=== PATIENT | female | born 1970 | race Hispanic/Latino ===

== ENCOUNTER 2018-05-28 11:15 | Emergency (ER) | payer MEDICAID, OTHER ==
[2018-05-28 11:24] VITALS: RESP 18; TEMP 98.3
[2018-05-28] MEDS ORDERED: Oxycodone/Acetaminophen 5/325 mg Tab PO STA (11:47)
--- NOTE | 2018-05-28 12:03 | ED PDOC ---
Arrival/HPI - General Historian: Patient - History of Present Illness Narrative History of Present Illness (Text): 05/28/18 11:59 48yo morbidly obese female with no pmhx bib EMS for left inner thigh pain x 3days. Patient states she pulled her hamstring while exercising 3days ago. States she was seen at a hospital in [place] and was discharged with Naprosyn after a negative xray. The boyfirend by the bedside states patient is currently staying with him and having severe pain. States the Naprosyn is not helping and she has not been able to sleep and ambulate secondary to the pain. She denies calf pain, swelling ,redness, chest pain, SOB, diaphoresis, any other complaint. 1 <Charlotte Gutierrez A - Last Filed: 05/28/18 14:43> <Luis Armando Wasserman - Last Filed: 05/28/18 15:31> - General Chief Complaint: Lower Extremity Problem/Injury Time Seen by Provider: 05/28/18 11:17 Past Medical History - Provider Review Nursing Documentation Reviewed: Yes - Cardiac Hx Hypertension: Yes - Psychiatric Hx Substance Use: No <Charlotte Gutierrez A - Last Filed: 05/28/18 14:43> Family/Social History - Physician Review Nursing Documentation Reviewed: Yes Family/Social History: Unknown Family HX Smoking Status: Never Smoked Hx Alcohol Use: No Hx Substance Use: No <Charlotte Gutierrez A - Last Filed: 05/28/18 14:43> Allergies/Home Meds <Charlotte Gutierrez A - Last Filed: 05/28/18 14:43> <Luis Armando Wasserman - Last Filed: 05/28/18 15:31> Allergies/Adverse Reactions: Allergies No Known Allergies Allergy (Verified 05/28/18 11:28) Home Medications: Home Meds Medication Instructions Recorded Confirmed Htn Med 05/28/18 Review of Systems - Physician Review All systems were reviewed & negative as marked: Yes - Review of Systems Constitutional: Normal Eyes: Normal ENT: Normal Respiratory: Normal Cardiovascular: Normal Gastrointestinal: Normal Genitourinary Female: Normal Musculoskeletal: Arthralgias (Left thigh pain) Skin: Normal Neurological: Normal Endocrine: Normal Hemo/Lymphatic: Normal Psychiatric: Normal <Charlotte Gutierrez A - Last Filed: 05/28/18 14:43> Physical Exam Vital Signs Reviewed: Yes Vital Signs Temp Pulse Resp BP Pulse Ox 05/28/18 11:23 98.3 F 86 18 160/110 H 100 Temperature: Afebrile Blood Pressure: Normal Pulse: Regular Respiratory Rate: Normal Appearance: Positive for: Well-Appearing, Non-Toxic, Comfortable Pain Distress: None Mental Status: Positive for: Alert and Oriented X 3 - Systems Exam Head: Present: Atraumatic, Normocephalic Pupils: Present: PERRL Extroacular Muscles: Present: EOMI Conjunctiva: Present: Normal Mouth: Present: Moist Mucous Membranes Neck: Present: Normal Range of Motion Respiratory/Chest: Present: Clear to Auscultation, Good Air Exchange. No: Respiratory Distress, Accessory Muscle Use Cardiovascular: Present: Regular Rate and Rhythm, Normal S1, S2. No: Murmurs Abdomen: No: Tenderness, Distention, Peritoneal Signs Back: Present: Normal Inspection Upper Extremity: Present: Normal Inspection. No: Cyanosis, Edema Lower Extremity: Present: Normal Inspection, NORMAL PULSES, Normal ROM, Capillary Refill < 2 s. No: Edema, CALF TENDERNESS, Gayathri's Sign, Tenderness, Swelling, Erythema, Deformity, Temperature Abnormalties, Neurovascularly Intact Neurological: Present: GCS=15, CN II-XII Intact, Speech Normal Skin: Present: Warm, Dry, Normal Color. No: Rashes Psychiatric: Present: Alert, Oriented x 3, Normal Insight, Normal Concentration <Diru,Happiness A - Last Filed: 05/28/18 14:43> Vital Signs Temp Pulse Resp BP Pulse Ox 05/28/18 14:48 71 18 152/86 H 100 05/28/18 12:55 79 18 158/96 H 100 05/28/18 11:23 98.3 F 86 18 160/110 H 100 <Tolerico,Luis Armando - Last Filed: 05/28/18 15:31> Medical Decision Making ED Course and Treatment: 05/28/18 14:45 48yo female in ED for left thigh pain s/p exercise 3days ago. Doppler US Left femur Percocet Reassess PEr US tech preliminary report was negative for DVT Left femur - IMPRESSION: Unremarkable radiographs of the left femur. On revaluation pt reports improvement of her pain. She was ambulatory. DC home with a cane. all result was DW the pt. She was advised to move, massage area with warm com press/shower, follow up with her PMD/clinic TRT ED for any new or worsening symptoms - RAD Interpretation Radiology Orders: 05/28/18 11:42 DUPLEX LOWER EXTRM VEIN LEFT [US] Stat 05/28/18 11:43 FEMUR MIN 2 VIEWS LT [RAD] Stat - Medication Orders Current Medication Orders: Oxycodone/Acetaminophen (Percocet 5/325 Mg Tab) 1 tab PO STAT STA Stop: 05/28/18 11:48 <Diru,Happiness A - Last Filed: 05/28/18 14:43> - RAD Interpretation Radiology Orders: 05/28/18 11:42 DUPLEX LOWER EXTRM VEIN LEFT [US] Stat 05/28/18 11:43 FEMUR MIN 2 VIEWS LT [RAD] Stat - Medication Orders Current Medication Orders: Discontinued Medications Oxycodone/Acetaminophen (Percocet 5/325 Mg Tab) 1 tab PO STAT STA Stop: 05/28/18 11:48 Last Admin: 05/28/18 13:00 Dose: 1 tab [facility] Pain Assessment Document 05/28/18 13:00 OCS (Rec: 05/28/18 13:00 OCS [id number]) Pain Reassessment Is this a pain reassessment? No Sleep Is patient sleeping during reassessment? No Presence of Pain Presence of Pain Yes Pain Scale Used Protocol: PSCALES Pain Scale Used Numeric Location Left, Right or Bilateral Right Upper or Lower Upper Pain Location Body Site Leg Description Description Constant Intensity of Pain at present 10 Pain Behavior Irritability Facial Grimacing Aggravating Factors ADL's <Luis Armando Wasserman - Last Filed: 05/28/18 15:31> - PA / MARKETING STRATEGY ANALYST / Resident Statement /DO has reviewed & agrees with the documentation as recorded. <Luis Armando Wasserman - Last Filed: 05/28/18 15:31> Disposition/Present on Arrival - Present on Arrival Any Indicators Present on Arrival: No History of DVT/PE: No History of Uncontrolled Diabetes: No Urinary Catheter: No History of Decub. Ulcer: No History Surgical Site Infection Following: None - Disposition Have Diagnosis and Disposition been Completed?: Yes Disposition Time: 14:30 Patient Plan: Discharge <Diru,Happiness A - Last Filed: 05/28/18 14:43> <Luis Armando Wasserman - Last Filed: 05/28/18 15:31> - Disposition Diagnosis: Muscle strain, lower leg Disposition: HOME/ ROUTINE Patient Problems: Current Active Problems Problem Status Onset Muscle strain, lower leg Acute Condition: STABLE Discharge Instructions (ExitCare): Lower Extremity Muscle Strain Additional Instructions: Follow up with your Doctor Return to ED for any new symptoms Prescriptions: oxyCODONE/Acetaminophen [Percocet 5/325 mg Tab] 1 tab PO Q6 #6 tab Referrals: Stacy Lee MD [Medical Doctor] - Follow up with primary James Schultz DO [Staff Provider] - Follow up with primary Forms: [employer] (Thai)
--- NOTE | 2018-05-28 14:11 | RAD ---
Date of service: 05/28/2018 PROCEDURE: Left Femur Radiographs. HISTORY: leg pain COMPARISON: None. TECHNIQUE: AP and Lateral Radiographs of the left femur. FINDINGS: FEMUR: Normal. No fracture. SOFT TISSUES: Normal. OTHER FINDINGS: None. IMPRESSION: Unremarkable radiographs of the left femur.
--- NOTE | 2018-05-28 15:56 | US ---
PROCEDURE: Left lower extremity venous US HISTORY: Leg pain and swelling. Evaluate for DVT. PHYSICIAN(S): Abhishek Plata MD. TECHNIQUE: Duplex sonography and color-flow Doppler with graded compression were used to evaluate the deep venous system of the left lower extremity. FINDINGS: The visualized deep venous system of the left lower extremity is sonographically normal and compressible. Normal wave forms and augmentation are seen. There is no sonographic evidence for deep venous thrombosis in the visualized segments of the left lower extremity. IMPRESSION: 1. No sonographic evidence for deep venous thrombosis in the visualized segments of the left lower extremity.
[2018-05-28 17:02] VITALS: BP 150/82; PULSE 74; O2SAT 98
== END 2018-05-28 17:02 | disposition home or self-care (01) ==
LOC: ED 11:15
DX: S86.912A Strain of unspecified muscle(s) and tendon(s) at lower leg level, left leg, initial encounter (principal); X50.9XXA Other and unspecified overexertion or strenuous movements or postures, initial encounter; I10 Essential (primary) hypertension; E66.01 Morbid (severe) obesity due to excess calories

== ENCOUNTER 2018-05-31 12:46 | Inpatient (IN) | payer MEDICAID, OTHER ==
[2018-05-31 13:05] VITALS: BMI 34.3
[2018-05-31] MEDS ORDERED: Morphine 4 mg/ml ISec IVP STA (13:22)
--- NOTE | 2018-05-31 13:23 | ED PDOC ---
Arrival/HPI - General Historian: Patient - History of Present Illness Narrative History of Present Illness (Text): 05/31/18 13:17 48 y/o female, pmh including htn, nkda, BMI 34, biba c/o lower back and lower leg pain for weeks after pulled the muscle. Pt. stated that she has chronic lower back pain radiating to the LE for weeks, tried nsaids with limited relief and stated that she has been falling due to the leg weakness and lower back pain, woke up yesterday morning around 1pm and noted to have left sided drooping with unable to smile/closing eyes but no slurred speech, no numbness or tingling, no extremity weakness, no loss of sensation, no other medical or psychological complaints. Past Medical History - Provider Review Nursing Documentation Reviewed: Yes - Cardiac Hx Hypertension: Yes - Psychiatric Hx Substance Use: No Family/Social History - Physician Review Nursing Documentation Reviewed: Yes Family/Social History: Unknown Family HX Smoking Status: Never Smoked Hx Alcohol Use: No Hx Substance Use: No Allergies/Home Meds Allergies/Adverse Reactions: Allergies No Known Allergies Allergy (Verified 05/28/18 11:28) Home Medications: Home Meds Medication Instructions Recorded Confirmed Htn Med 05/28/18 Review of Systems - Review of Systems Constitutional: absent: Fatigue, Fevers Eyes: absent: Vision Changes ENT: absent: Hearing Changes Respiratory: absent: SOB, Cough Cardiovascular: absent: Chest Pain Gastrointestinal: absent: Abdominal Pain, Diarrhea, Nausea, Vomiting Musculoskeletal: Back Pain. absent: Arthralgias Skin: absent: Rash, Pruritis, Skin Lesions Neurological: Focal Weakness. absent: Headache, Dizziness, Gait Changes, Speech Changes, Facial Droop, Disequilibrium (lt. sided facial), Seizure Psychiatric: absent: Anxiety, Depression, Suicidal Ideation Physical Exam Vital Signs Reviewed: Yes Temperature: Afebrile Blood Pressure: Hypertensive Pulse: Regular Respiratory Rate: Normal Appearance: Positive for: Well-Appearing, Non-Toxic Pain Distress: Severe Mental Status: Positive for: Alert and Oriented X 3 - Systems Exam Head: Present: Atraumatic, Normocephalic, Other (no facial tenderness or swelling. ). No: Tenderness, Contusion, Swelling, Ecchymosis, Abrasion, Laceration Pupils: Present: PERRL Extroacular Muscles: Present: EOMI Conjunctiva: Present: Normal, Other (Lt. eye examined with fluosein strip and show no up take. Note patient has no left eye discomfort. ) Ears: Present: NORMAL TM, Normal Canal. No: Erythema Mouth: Present: Moist Mucous Membranes Pharnyx: No: ERYTHEMA, EXUDATE, TONSILS ENLARGED Nose (External): Present: Atraumatic. No: Abrasion, Contusion, Laceration Nose (Internal): Present: Normal Inspection, No Active Bleeding. No: Rhinorrhea, Septal Hematoma, Epistaxis Neck: Present: Normal Range of Motion, Trachea Midline. No: Meningeal Signs, MIDLINE TENDERNESS, Paraspinal Tenderness, Lymphadenopathy Respiratory/Chest: Present: Clear to Auscultation, Good Air Exchange. No: Respiratory Distress, Accessory Muscle Use Cardiovascular: Present: Regular Rate and Rhythm, Normal S1, S2. No: Murmurs Abdomen: No: Tenderness, Distention, Peritoneal Signs, Rebound, Guarding Back: Present: Normal Inspection, Paraspinal Tenderness (bilateral paraspinal lumbar region. ). No: CVA Tenderness, Midline Tenderness, Pain with Leg Raise, Decubitus Ulcer Upper Extremity: Present: Normal Inspection. No: Cyanosis, Edema Lower Extremity: Present: Normal Inspection. No: Edema Neurological: Present: GCS=15, CN II-XII Intact, Speech Normal, Motor Func Grossly Intact, Gait Normal, Memory Normal, Other (Lt. 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 ) Skin: Present: Warm, Dry, Rashes (lower belly region noted to have lichenification rash appear to be tinea corporis), Normal Color Psychiatric: Present: Alert, Oriented x 3, Normal Insight, Normal Concentration Medical Decision Making ED Course and Treatment: 05/31/18 13:32 -Labs -radiology study -IV morphine/valtrex/prednisone/topical clotrimaozole -Eye patch and artificial tear -observe and reassess 05/31/18 16:41 -Urine hcg is negative. -EKG: NSR @ 98 BPM, no ST elevation or depression, no T wave inversion. -CT head: No acute intracranial abnormalities. No significant findings to account for the clinical presentation. -CT Lumbar spine: Degenerative changes mid and lower lumbar spine/lumbosacral junction. These are most notable at L5-S1 including grade 1 retrolisthesis. Proliferative degenerative changes extend into the exiting neural foramen on the left. No acute findings. Additional benign and/or incidental findings described above. -Chest xray No active disease. -Bilateral LE venuous doppler: as per preliminary report, no acute DVT -Labs show no acute findings except K+ 3.5 (potassium chloride 20meq po ordered) -Mg within normal limit -ESR is 23 -CRP ordered and won't be resulted -Pt. still having pain after pain medication, unable to walk without falling, high risk for fall. -Lymes IGG and IGM, HSV PCR ordered and wont be resulted today. -I can not explain the cause of her lower back pain that causing her fall, she would need additional imaging which may need MRI of lumbar spine? and possible physical therapy, not safe to be discharged home with high risk of fall and lives alone. 05/31/18 17:14 -aspirin ordered for her. -I discussed with Dr. Begum about labs/radiology results/Dr. Garcia consult, agreed to admit to [facility] floor and follow up. - Lab Interpretations I have reviewed the lab results: Yes - RAD Interpretation Radiology Orders: -CT head: Date of service: 05/31/2018 PROCEDURE: CT HEAD WITHOUT CONTRAST. HISTORY: falls frequently, lt.sided bells palsy COMPARISON: None available. TECHNIQUE: Axial computed tomography images were obtained through the head/brain without intravenous contrast. Supplemental Coronal and Sagittal projections created and reviewed. Radiation dose: Total exam DLP = 838.82 mGy-cm. This CT exam was performed using one or more of the following dose reduction techniques: Automated exposure control, adjustment of the mA and/or kV according to patient size, and/or use of iterative reconstruction technique. FINDINGS: HEMORRHAGE: No intracranial hemorrhage. BRAIN: No mass effect or edema. No atrophy or chronic microvascular ischemic changes. VENTRICLES: Unremarkable. No hydrocephalus. CALVARIUM: Unremarkable. PARANASAL SINUSES: Unremarkable as visualized. No significant inflammatory changes. MASTOID AIR CELLS: Unremarkable as visualized. No inflammatory changes. OTHER FINDINGS: None. IMPRESSION: No acute intracranial abnormalities. No significant findings to account for the clinical presentation. -CT Lumbar spine: Date of service: 05/31/2018 PROCEDURE: CT Lumbar Spine without contrast HISTORY: chronic lower back pain radiating to LE COMPARISON: None available. TECHNIQUE: Axial computed tomography images were obtained of the lumbar spine without the use of intravenous contrast. Coronal and sagittal reformatted images were created and reviewed. Radiation dose: Total exam DLP = 1583.32 mGy-cm. This CT exam was performed using one or more of the following dose reduction techniques: Automated exposure control, adjustment of the mA and/or kV according to patient size, and/or use of iterative reconstruction technique. FINDINGS: VERTEBRAE: Unremarkable. No fracture. Normal alignment. DISCS/SPINAL CANAL/NEURAL FORAMINA: L1-2: Unremarkable. L2-3: Unremarkable. L3-4: Degenerative changes primarily disc space narrowing, vacuum disc phenomenon, bulging annulus. L4-5: Unremarkable. L5-S1: Grade 1 retrolisthesis. Vacuum disc phenomenon. Proliferative degenerative/hypertrophic changes extend into the exiting neural foramen left side only. PARASPINAL SOFT TISSUES: Unremarkable. OTHER FINDINGS: Sacroiliac degenerative changes are mild and symmetrical. Spina bifida occulta lumbosacral junction common normal variant IMPRESSION: Degenerative changes mid and lower lumbar spine/lumbosacral junction. These are most notable at L5-S1 including grade 1 retrolisthesis. Proliferative degenerative changes extend into the exiting neural foramen on the left. No acute findings. Additional benign and/or incidental findings described above. -Chest xray Date of service: 05/31/2018 PROCEDURE: CHEST RADIOGRAPH, 1 VIEW HISTORY: medical clearance COMPARISON: None available. FINDINGS: LUNGS: Clear. PLEURA: No pneumothorax or pleural fluid seen. CARDIOVASCULAR: No aortic atherosclerotic calcification present. Normal. OSSEOUS STRUCTURES: No significant abnormalities. VISUALIZED UPPER ABDOMEN: Normal. OTHER FINDINGS: None. IMPRESSION: No active disease. -Bilateral LE venuous doppler: as per preliminary report, no acute DVT Retail Brand Ambassador: Radiologist - EKG Interpretation EKG Interpretation (Text): 05/31/18 15:53 EKG: NSR @ 98 BPM, no ST elevation or depression, no T wave inversion. Interpreted by ED Physician: Yes Type: 12 lead EKG - PA / PAPER COLORER / Resident Statement MD/DO has reviewed & agrees with the documentation as recorded. Disposition/Present on Arrival - Present on Arrival Any Indicators Present on Arrival: No History of DVT/PE: No History of Uncontrolled Diabetes: No Urinary Catheter: No History of Decub. Ulcer: No History Surgical Site Infection Following: None - Disposition Have Diagnosis and Disposition been Completed?: Yes Diagnosis: Chaudhary's palsy, Tinea corporis, Frequent falls, Hypokalemia, Back pain Disposition: HOSPITALIZED Disposition Time: 17:16 Patient Plan: Admission, Observation, Telemetry Patient Problems: Current Active Problems Problem Status Onset Back pain Acute Chaudhary's palsy Acute Frequent falls Acute Hypokalemia Acute Tinea corporis Acute Condition: STABLE
[2018-05-31] MEDS ORDERED: Aritificial Tears (15ml) OD STA ×2 (13:27→13:29)
[2018-05-31] MEDS ORDERED: Clotrimazole 1% Cream(30 gm) TOP STA ×2 (13:35→13:36)
[2018-05-31] MEDS ORDERED: Sodium Chloride 0.9% 1,000 ML IV SCH (13:45)
--- NOTE | 2018-05-31 14:36 | CT ---
Date of service: 05/31/2018 PROCEDURE: CT HEAD WITHOUT CONTRAST. HISTORY: falls frequently, lt.sided bells palsy COMPARISON: None available. TECHNIQUE: Axial computed tomography images were obtained through the head/brain without intravenous contrast. Supplemental Coronal and Sagittal projections created and reviewed. Radiation dose: Total exam DLP = 838.82 mGy-cm. This CT exam was performed using one or more of the following dose reduction techniques: Automated exposure control, adjustment of the mA and/or kV according to patient size, and/or use of iterative reconstruction technique. FINDINGS: HEMORRHAGE: No intracranial hemorrhage. BRAIN: No mass effect or edema. No atrophy or chronic microvascular ischemic changes. VENTRICLES: Unremarkable. No hydrocephalus. CALVARIUM: Unremarkable. PARANASAL SINUSES: Unremarkable as visualized. No significant inflammatory changes. MASTOID AIR CELLS: Unremarkable as visualized. No inflammatory changes. OTHER FINDINGS: None. IMPRESSION: No acute intracranial abnormalities. No significant findings to account for the clinical presentation.
--- NOTE | 2018-05-31 14:42 | CT ---
Date of service: 05/31/2018 PROCEDURE: CT Lumbar Spine without contrast HISTORY: chronic lower back pain radiating to LE COMPARISON: None available. TECHNIQUE: Axial computed tomography images were obtained of the lumbar spine without the use of intravenous contrast. Coronal and sagittal reformatted images were created and reviewed. Radiation dose: Total exam DLP = 1583.32 mGy-cm. This CT exam was performed using one or more of the following dose reduction techniques: Automated exposure control, adjustment of the mA and/or kV according to patient size, and/or use of iterative reconstruction technique. FINDINGS: VERTEBRAE: Unremarkable. No fracture. Normal alignment. DISCS/SPINAL CANAL/NEURAL FORAMINA: L1-2: Unremarkable. L2-3: Unremarkable. L3-4: Degenerative changes primarily disc space narrowing, vacuum disc phenomenon, bulging annulus. L4-5: Unremarkable. L5-S1: Grade 1 retrolisthesis. Vacuum disc phenomenon. Proliferative degenerative/hypertrophic changes extend into the exiting neural foramen left side only. PARASPINAL SOFT TISSUES: Unremarkable. OTHER FINDINGS: Sacroiliac degenerative changes are mild and symmetrical. Spina bifida occulta lumbosacral junction common normal variant IMPRESSION: Degenerative changes mid and lower lumbar spine/lumbosacral junction. These are most notable at L5-S1 including grade 1 retrolisthesis. Proliferative degenerative changes extend into the exiting neural foramen on the left. No acute findings. Additional benign and/or incidental findings described above.
--- NOTE | 2018-05-31 14:42 | RAD ---
Date of service: 05/31/2018 PROCEDURE: CHEST RADIOGRAPH, 1 VIEW HISTORY: medical clearance COMPARISON: None available. FINDINGS: LUNGS: Clear. PLEURA: No pneumothorax or pleural fluid seen. CARDIOVASCULAR: No aortic atherosclerotic calcification present. Normal. OSSEOUS STRUCTURES: No significant abnormalities. VISUALIZED UPPER ABDOMEN: Normal. OTHER FINDINGS: None. IMPRESSION: No active disease.
[2018-05-31 16:03] LABS: BASO # 0.03 K/mm3 (0.0-2.0); BASO % 0.3 % (0.0-3.0); EOS # 0.1 (0.0-0.7); GRAN # 7.14 (1.4-6.5); GRAN % 76.2 % (50.0-68.0); HEMOGLOBIN 13.2 g/dL (12.0-16.0); LYMPH # 1.7 (1.2-3.4); LYMPH % 18.2 % (22.0-35.0); MEAN CELL VOLUME 85.2 fl (80.0-105.0); MEAN CORPUSCULAR HEMOGLOBIN 26.5 pg (25.0-35.0); MEAN CORPUSCULAR HGB CONC 31.1 g/dl (31.0-37.0); MONO # 0.4 (0.1-0.6); MONO % 4.3 % (1.0-6.0); RBC 4.99 10^6/uL (3.5-6.1); RED CELL DISTRIBUTION WIDTH 15.1 % (11.5-14.5); WHITE BLOOD COUNT 9.4 10^3/uL (4.5-11.0)
[2018-05-31 16:06] LABS: INR 1.06; PARTIAL THROMBOPLASTIN TIME 27.9 Seconds (25.1-36.5); PROTHROMBIN TIME 12.1 SECONDS (9.4-12.5)
[2018-05-31 16:11] LABS: ALB/GLOB RATIO 1.2 (1.1-1.8); ALBUMIN 4.2 g/dL (3.0-4.8); ALT/SGPT 41 U/L (7-56); AST/SGOT 49 U/L (14-36); BLOOD UREA NITROGEN 16 mg/dL (7-21); CALCIUM 9.2 mg/dL (8.4-10.5); GFR NON-AFRICAN AMERICAN > 60; LIPASE 119 U/L (23-300)
[2018-05-31] MEDS ORDERED: Potassium Chloride 20 mEq ER Tab PO STA (16:38)
[2018-05-31] MEDS ORDERED: Clotrimazole 1% Top Soln(10 ml) TOP SCH (18:30)
--- NOTE | 2018-05-31 18:38 | CP.PCM.HP ---
<Diogenes Bernal - Last Filed: 05/31/18 20:16> History of Present Illness - History of Present Illness History of Present Illness: Resident History & Physical for Hospitalist Service Patient is a 48 year old female with past medical history of HTN and obesity presenting with chief complaint of increasing weakness which began about one week prior. She states she has been experiencing bilateral thigh pain and back pain, for which she took naproxen prescribed from an urgent care with no relief. The thigh pain is localized and unrelated to her back pain. Pain is inter mittent, sharp in nature, and worsened by lying supine. She presented to [facility] three days ago with the same symptoms. At that time lower extremity dopplers were done along with left femur x-ray which were unremarkable. Yesterday she began to notice left sided facial droop, slurred speech, and tingling in her upper and lower extremities bilaterally. She states that prior to the onset of symptoms she was able to carry out activities of daily living independently. Her weakness has worsened to the severity that she has to use a walker. She denies any recent illnesses, trauma, recent travel including camping, tick bites, and sick contacts. She also denies seizures, loss of consciousness, fevers, chills, chest pain, shortness of breath, abdominal pain, diarrhea, dysuria, bowel or bladder incontinence. PMH: HTN, obesity PSH: none SHx: denies alcohol, tobacco, illicit drug use FHx: Father (CKD, M.I.) Allergies: NKDA PMD: Dr. Mondragon Present on Admission - Present on Admission Any Indicators Present on Admission: No Review of Systems - Review of Systems All systems: reviewed and no additional remarkable complaints except (as stated in HPI) Past Patient History - Past Social History Smoking Status: Never Smoked - CARDIAC Hx Hypertension: Yes - PSYCHIATRIC Hx Substance Use: No - SURGICAL HISTORY Hx Surgeries: No Meds Allergies/Adverse Reactions: Allergies Allergy/AdvReac Type Severity Reaction Status Date / Time No Known Allergies Allergy Verified 05/31/18 20:50 Physical Exam - Constitutional Appears: Non-toxic, No Acute Distress - Head Exam Head Exam: ATRAUMATIC, NORMOCEPHALIC Additional comments: left facial droop - Eye Exam Eye Exam: EOMI, Normal appearance, PERRL - ENT Exam ENT Exam: Mucous Membranes Moist, Normal External Ear Exam - Neck Exam Neck exam: Negative for: Lymphadenopathy, Tenderness - Respiratory Exam Respiratory Exam: Clear to Auscultation Bilateral, NORMAL BREATHING PATTERN. absent: Wheezes, Respiratory Distress - Cardiovascular Exam Cardiovascular Exam: REGULAR RHYTHM, +S1, +S2. absent: Tachycardia, Systolic Murmur - GI/Abdominal Exam GI & Abdominal Exam: Soft. absent: Firm, Guarding, Rebound, Rigid, Tenderness Additional comments: erythematous rash noted in intertriginous folds bruises noted in lower quadrants - Extremities Exam Extremities exam: Positive for: full ROM, normal capillary refill, pedal pulses present. Negative for: calf tenderness, pedal edema, tenderness - Neurological Exam Neurological exam: Alert, CN II-XII Intact, Oriented x3, Reflexes Normal Additional comments: mild dysmetria - Expanded Neurological Exam Expanded Patient oriented to: person, place, time Speech: Slurred Speech Cranial nerves: EOM's Intact: Normal, Facial Sensation: Normal, Tongue Deviation: Normal Cerebellar Function: Finger to Nose: Normal Upper motor neuron: Babinski Sign: Normal Neuro motor strength exam: Left Upper Extremity: 5, Right Upper Extremity: 5, Left Lower Extremity: 5, Right Lower Extremity: 5 DTR: Bicep Left: 2+, Bicep Right: 2+, Brachioradialis Left: 2+, Brachioradialis Right: 2+, Patellar Left: 2+, Patellar Right: 2+ Coma Scale Eye Opening: SPONTANEOUS Coma Scale Motor Response: OBEYS COMMANDS Coma Scale Verbal: Oriented Coma Scale Total: 15 - Psychiatric Exam Psychiatric exam: Normal Affect, Normal Mood - Skin Skin Exam: Dry, Intact, Normal Color Results - Vital Signs Recent Vital Signs: Last Vital Signs Temp Pulse 97 H 05/31/18 12:47 Resp 17 05/31/18 12:47 BP 175/103 H 05/31/18 12:47 Pulse Ox 99 05/31/18 12:47 - Labs Result Diagrams: 05/31/18 13:35 05/31/18 13:35 Labs: Laboratory Results - last 24 hr 05/31/18 05/31/18 05/31/18 13:35 13:35 13:35 WBC 9.4 RBC 4.99 Hgb 13.2 Hct 42.5 MCV 85.2 MCH 26.5 MCHC 31.1 RDW 15.1 H Plt Count 321 MPV 11.0 Gran % 76.2 H Lymph % (Auto) 18.2 L [place] % (Auto) 4.3 Eos % (Auto) 1.0 L Baso % (Auto) 0.3 Gran # 7.14 H Lymph # (Auto) 1.7 Lander # (Auto) 0.4 Eos # (Auto) 0.1 Baso # (Auto) 0.03 ESR 23 H PT INR APTT Sodium 142 Potassium 3.5 L Chloride 105 Carbon Dioxide 29 Anion Gap 11 BUN 16 Creatinine 0.5 L Est GFR ( Amer) > 60 Est GFR (Non-Af Amer) > 60 Random Glucose 106 Calcium 9.2 Magnesium 2.3 H Total Bilirubin 0.5 AST 49 H ALT 41 Alkaline Phosphatase 68 Total Creatine Kinase 167 Total Protein 7.7 Albumin 4.2 Globulin 3.5 Albumin/Globulin Ratio 1.2 Lipase 119 Beta HCG, Quant < 2.39 05/31/18 13:35 WBC RBC Hgb Hct MCV MCH MCHC RDW Plt Count MPV Gran % Lymph % (Auto) Lander % (Auto) Eos % (Auto) Baso % (Auto) Gran # Lymph # (Auto) Lander # (Auto) Eos # (Auto) Baso # (Auto) ESR PT 12.1 INR 1.06 APTT 27.9 Sodium Potassium Chloride Carbon Dioxide Anion Gap BUN Creatinine Est GFR ( Amer) Est GFR (Non-Af Amer) Random Glucose Calcium Magnesium Total Bilirubin AST ALT Alkaline Phosphatase Total Creatine Kinase Total Protein Albumin Globulin Albumin/Globulin Ratio Lipase Beta HCG, Quant Assessment & Plan - Assessment and Plan (Free Text) Assessment: Patient is a 48 year old female with past medical history of HTN and obesity admitted for workup and management of weakness, BLE pain, slurred speech, facial droop. Plan: Weakness - Chaudhary's palsy vs. TIA vs. stroke - In ED given 325 mg aspirin, 6 mg morphine, 60 mg prednisone, 1 gm valacycovir - Head CT negative for intracranial abnormalities - Lumbar CT shows degenerative changes mid and lower lumbar spine/lumbosacral junction, most notable at L5-S1 including grade 1 retrolisthesis. Proliferative degenerative changes extend into exiting neural foramen on the left - LE dopplers unremarkable - Lyme titers, herpes - Neurology and PT consulted. Appreciate recs. - prednisone 60 mg PO daily - NS @ 100 ccs/hr - followup brain MRI HTN - continue home med amlodipine 10 mg PO daily - Hydralazine 10 mg Q6H PRN Abdominal rash - Clotrimazole cream PPX - SCDs - No GI ppx indicated at this time Case discussed with Dr. Shy Bernal PGY-1 - Date & Time Date: 05/31/18 Time: 18:27 <Marisol Begum - Last Filed: 06/01/18 07:19> Results - Vital Signs Recent Vital Signs: Last Vital Signs Temp 98.2 F 06/01/18 00:00 Pulse 119 H 06/01/18 06:00 Resp 20 06/01/18 00:00 BP 166/96 H 06/01/18 00:00 Pulse Ox 95 06/01/18 00:00 - Labs Result Diagrams: 05/31/18 13:35 05/31/18 13:35 Labs: Laboratory Results - last 24 hr 05/31/18 05/31/18 05/31/18 13:35 13:35 13:35 WBC 9.4 RBC 4.99 Hgb 13.2 Hct 42.5 MCV 85.2 MCH 26.5 MCHC 31.1 RDW 15.1 H Plt Count 321 MPV 11.0 Gran % 76.2 H Lymph % (Auto) 18.2 L [place] % (Auto) 4.3 Eos % (Auto) 1.0 L Baso % (Auto) 0.3 Gran # 7.14 H Lymph # (Auto) 1.7 Lander # (Auto) 0.4 Eos # (Auto) 0.1 Baso # (Auto) 0.03 ESR 23 H PT INR APTT Sodium 142 Potassium 3.5 L Chloride 105 Carbon Dioxide 29 Anion Gap 11 BUN 16 Creatinine 0.5 L Est GFR ( Amer) > 60 Est GFR (Non-Af Amer) > 60 Random Glucose 106 Calcium 9.2 Magnesium 2.3 H Total Bilirubin 0.5 AST 49 H ALT 41 Alkaline Phosphatase 68 Total Creatine Kinase 167 C-Reactive Protein 8.90 Total Protein 7.7 Albumin 4.2 Globulin 3.5 Albumin/Globulin Ratio 1.2 Lipase 119 Beta HCG, Quant < 2.39 05/31/18 13:35 WBC RBC Hgb Hct MCV MCH MCHC RDW Plt Count MPV Gran % Lymph % (Auto) Lander % (Auto) Eos % (Auto) Baso % (Auto) Gran # Lymph # (Auto) Lander # (Auto) Eos # (Auto) Baso # (Auto) ESR PT 12.1 INR 1.06 APTT 27.9 Sodium Potassium Chloride Carbon Dioxide Anion Gap BUN Creatinine Est GFR ( Amer) Est GFR (Non-Af Amer) Random Glucose Calcium Magnesium Total Bilirubin AST ALT Alkaline Phosphatase Total Creatine Kinase C-Reactive Protein Total Protein Albumin Globulin Albumin/Globulin Ratio Lipase Beta HCG, Quant Attending/Attestation - Attestation I have personally seen and examined this patient.: Yes I have fully participated in the care of the patient.: Yes I have reviewed all pertinent clinical information: Yes Notes (Text): 05/31/18 48 year old female with past medical history of hypertension who presents with complaint of falls, back pain and leg pain/weakness for past few days. Also complained of facial droop x 2 days. ?Chaudhary's palsy vs TIA/CVA. CT head was negative for acute findings. Will obtain MRI brain and neurology evaluation. Continue with aspirin. Lipid panel ordered. PT evaluation requested. Trial of prednisone. Lyme and herpes titers ordered. CT lumbar spine reviewed showed degenerative changes mid and lower lumbar spine / lumbosacral junction, most notable at L5-S1. LE dopplers negative. Resume home medications for hypertension. Marisol Begum MD Hospitalist.
--- NOTE | 2018-05-31 21:48 | US ---
HISTORY: Leg pain and swelling. Evaluate for DVT PHYSICIAN(S): Abhishek Plata MD. TECHNIQUE: Duplex sonography and color-flow Doppler with graded compression were used to evaluate the deep venous systems of both lower extremities. FINDINGS: The visualized deep venous systems of both lower extremities are sonographically normal and compressible. Normal wave forms and augmentation are seen. There is no sonographic evidence for deep venous thrombosis in the visualized segments of both lower extremities. IMPRESSION: No sonographic evidence for deep venous thrombosis in the visualized segments of both lower extremities.
[2018-05-31] MEDS ORDERED: Pneumococcal 23-Valent Vaccine IM ONE (23:16)
[2018-05-31] MEDS ORDERED: Influenza Vaccine 60 mcg/0.5 mL SYR (4YR UP) IM ONE (23:16)
[2018-06-01] MEDS ORDERED: Sodium Chloride 0.9% 1,000 ML IV SCH (00:12)
[2018-06-01] MEDS: Clotrimazole 1% Cream(30 gm) TOP SCH ×3 (00:15→18:48)
[2018-06-01] MEDS ORDERED: Morphine 2 mg/ml ISec IVP ONE (07:07)
[2018-06-01 07:12] LABS: BASO # 0.02 K/mm3 (0.0-2.0); BASO % 0.2 % (0.0-3.0); EOS % 0.3 % (1.5-5.0); GRAN # 6.76 (1.4-6.5); GRAN % 70.3 % (50.0-68.0); HEMOGLOBIN 13.7 g/dL (12.0-16.0); LYMPH # 2.3 (1.2-3.4); LYMPH % 23.4 % (22.0-35.0); MEAN CELL VOLUME 84.4 fl (80.0-105.0); MEAN CORPUSCULAR HGB CONC 31.9 g/dl (31.0-37.0); MEAN PLATELET VOLUME 10.7 fl (7.0-11.0); MONO # 0.6 (0.1-0.6); MONO % 5.8 % (1.0-6.0); RBC 5.08 10^6/uL (3.5-6.1); WHITE BLOOD COUNT 9.6 10^3/uL (4.5-11.0)
[2018-06-01 07:21] LABS: ALB/GLOB RATIO 1.2 (1.1-1.8); ALBUMIN 4.2 g/dL (3.0-4.8); ALT/SGPT 31 U/L (7-56); AST/SGOT 39 U/L (14-36); BLOOD UREA NITROGEN 15 mg/dL (7-21); CALCIUM 9.5 mg/dL (8.4-10.5); GFR NON-AFRICAN AMERICAN > 60; HDL CHOLESTEROL 30 mg/dL (29-60)
[2018-06-01 07:32] LABS: LDL CHOLESTEROL 129 mg/dL (0-129)
--- NOTE | 2018-06-01 09:17 | CARD ---
APPROVED REPORT Date of service: 05/31/2018 EKG Measurement Heart [id number] <Conclusion> Normal sinus rhythm PRWP
[2018-06-01] MEDS: Lidocaine 5% Patch TD SCH (09:39)
[2018-06-01] MEDS ORDERED: Lidocaine 5% Patch TD SCH (10:00)
--- NOTE | 2018-06-01 10:48 | CP.PCM.PN ---
<Diogenes Bernal L - Last Filed: 06/01/18 16:40> Subjective - Date & Time of Evaluation Date of Evaluation: 06/01/18 Time of Evaluation: 10:48 - Subjective Subjective: Resident Progress Note for Hospitalist Service Patient examined at bedside. No acute events overnight. Patient states that her leg pain is improved. Her facial droop and weakness is unchanged from prior. Patient passed swallow eval and diet was advanced. Denies headache, dizziness, chest pain, shortness of breath, abdominal pain, diarrhea. Objective - Vital Signs/Intake and Output Vital Signs (last 24 hours): Temp Pulse Resp BP Pulse Ox 98.2 F 119 H 20 186/108 H 95 06/01/18 00:00 06/01/18 06:00 06/01/18 00:00 06/01/18 09:28 06/01/18 00:00 Intake and Output: 06/01/18 06/01/18 06:59 18:59 Intake Total 655 Output Total 450 Balance 205 - Medications Medications: Current Medications Acetaminophen (Tylenol 325mg Tab) 650 mg PO Q6H PRN PRN Reason: Pain, moderate (4-7) Last Admin: 06/01/18 03:46 Dose: 650 mg Amlodipine Besylate (Norvasc) 10 mg PO DAILY [facility] Last Admin: 06/01/18 09:28 Dose: 10 mg Aspirin (Ecotrin) 81 mg PO 0800 [facility] Last Admin: 06/01/18 09:39 Dose: 81 mg Clotrimazole (Lotrimin 1%) 0 gm TOP BID [facility] Last Admin: 06/01/18 00:15 Dose: Not Given Hydralazine HCl (Apresoline) 10 mg IVP Q6H PRN PRN Reason: Systolic Blood Pressure Last Admin: 05/31/18 22:52 Dose: 10 mg Sodium Chloride (Sodium Chloride 0.9%) 1,000 mls @ 50 mls/hr IV .Q20H [facility] Lidocaine (Lidoderm) 1 ea TD DAILY [facility] Last Admin: 06/01/18 09:39 Dose: 1 ea Prednisone (Prednisone Tab) 60 mg PO DAILY [facility] Last Admin: 06/01/18 09:28 Dose: 60 mg - Labs Labs: 06/01/18 06:30 06/01/18 06:30 PT 12.1 SECONDS (9.4-12.5) 05/31/18 13:35 INR 1.06 05/31/18 13:35 APTT 27.9 Seconds (25.1-36.5) 05/31/18 13:35 - Additional Findings Additional findings: - Constitutional Appears: Non-toxic, No Acute Distress - Head Exam Head Exam: ATRAUMATIC, NORMOCEPHALIC Additional comments: left facial droop - Eye Exam Eye Exam: EOMI, Normal appearance, PERRL - Respiratory Exam Respiratory Exam: Clear to Auscultation Bilateral, NORMAL BREATHING PATTERN. absent: Wheezes - Cardiovascular Exam Cardiovascular Exam: REGULAR RHYTHM, +S1, +S2. absent: Tachycardia, Systolic Murmur - GI/Abdominal Exam GI & Abdominal Exam: Soft. absent: Firm, Guarding, Rebound, Rigid, Tenderness Additional comments: erythematous rash noted in intertriginous folds bruises noted in lower quadrants - Extremities Exam Extremities exam: Positive for: full ROM, normal capillary refill, pedal pulses present. Negative for: calf tenderness, pedal edema, tenderness - Neurological Exam Neurological exam: Alert, CN II-XII Intact, Oriented x3, Reflexes Normal Additional comments: mild dysmetria - Expanded Neurological Exam Expanded Patient oriented to: person, place, time Speech: Slurred Speech Cranial nerves: EOM's Intact: Normal, Facial Sensation: Normal, Tongue Deviation: Normal Cerebellar Function: Finger to Nose: Normal Upper motor neuron: Babinski Sign: Normal Neuro motor strength exam: Left Upper Extremity: 5, Right Upper Extremity: 5, Left Lower Extremity: 5, Right Lower Extremity: 5 DTR: Bicep Left: 2+, Bicep Right: 2+, Brachioradialis Left: 2+, Brachioradialis Right: 2+, Patellar Left: 2+, Patellar Right: 2+ Coma Scale Eye Opening: SPONTANEOUS Coma Scale Motor Response: OBEYS COMMANDS Coma Scale Verbal: Oriented Coma Scale Total: 15 - Psychiatric Exam Psychiatric exam: Normal Affect, Normal Mood - Skin Skin Exam: Dry, Intact, Normal Color Assessment and Plan - Assessment and Plan (Free Text) Assessment: Patient is a 48 year old female with past medical history of HTN and obesity admitted for workup and management of weakness, BLE pain, slurred speech, facial droop. Plan: Weakness - Chaudhary's palsy vs. TIA vs. stroke - In ED given 325 mg aspirin, 6 mg morphine, 60 mg prednisone, 1 gm valacycovir - Head CT negative for intracranial abnormalities - Lumbar CT shows degenerative changes mid and lower lumbar spine/lumbosacral junction, most notable at L5-S1 including grade 1 retrolisthesis. Proliferative degenerative changes extend into exiting neural foramen on the left - LE dopplers unremarkable - Lyme titers, herpes - Neurology and PT consulted. Appreciate recs. - prednisone 60 mg PO daily - NS @ 100 ccs/hr - MRI unable to be completed due to patient's kyphosis HTN - continue home med amlodipine 10 mg PO daily - Hydralazine 10 mg Q6H PRN Abdominal rash - Clotrimazole cream PPX - SCDs - No GI ppx indicated at this time Case discussed with Dr. Shy Bernal PGY-1 <Marisol Begum - Last Filed: 06/01/18 17:37> Objective - Vital Signs/Intake and Output Vital Signs (last 24 hours): Temp Pulse Resp BP Pulse Ox 98.2 F 115 H 20 166/116 H 95 06/01/18 00:00 06/01/18 16:03 06/01/18 00:00 06/01/18 16:03 06/01/18 00:00 Intake and Output: 06/01/18 06/01/18 06:59 18:59 Intake Total 655 Output Total 450 Balance 205 - Medications Medications: Current Medications Acetaminophen (Tylenol 325mg Tab) 650 mg PO Q6H PRN PRN Reason: Pain, moderate (4-7) Last Admin: 06/01/18 03:46 Dose: 650 mg Amlodipine Besylate (Norvasc) 10 mg PO DAILY [facility] Last Admin: 06/01/18 09:28 Dose: 10 mg Aspirin (Ecotrin) 81 mg PO 0800 [facility] Last Admin: 06/01/18 09:39 Dose: 81 mg Clotrimazole (Lotrimin 1%) 0 gm TOP BID [facility] Last Admin: 06/01/18 00:15 Dose: Not Given Hydralazine HCl (Apresoline) 10 mg IVP Q6H PRN PRN Reason: Systolic Blood Pressure Last Admin: 06/01/18 16:03 Dose: 10 mg Lidocaine (Lidoderm) 1 ea TD DAILY [facility] Last Admin: 06/01/18 09:39 Dose: 1 ea Prednisone (Prednisone Tab) 60 mg PO DAILY [facility] Last Admin: 06/01/18 09:28 Dose: 60 mg - Labs Labs: 06/01/18 06:30 06/01/18 06:30 PT 12.1 SECONDS (9.4-12.5) 05/31/18 13:35 INR 1.06 05/31/18 13:35 APTT 27.9 Seconds (25.1-36.5) 05/31/18 13:35 Attending/Attestation - Attestation I have personally seen and examined this patient.: Yes I have fully participated in the care of the patient.: Yes I have reviewed all pertinent clinical information, including history, physical exam and plan: Yes Notes (Text): 06/01/18 17:21 48 year old female with past medical history of hypertension who presented with complaint of falls, back pain and leg pain/weakness for past few days. Also complained of facial droop x 2 days. ?Chaudhary's palsy vs TIA/CVA. CT head was negative for acute findings. CT lumbar spine reviewed showed degenerative changes mid and lower lumbar spine / lumbosacral junction, most notable at L5- S1. MRI brain and spine was ordered. Patient is being seen by neurology today. PT evaluation was requested as well. Continue with aspirin. Lipid panel reviewed; will start statin. Trial of prednisone. Lyme and herpes titers ordered. LE dopplers negative. She is on norvasc and hydralazine prn for hypertension. Will add losartan. Marisol Begum MD Hospitalist.
--- NOTE | 2018-06-01 13:44 | CP.PCM.PN ---
Subjective - Date & Time of Evaluation Date of Evaluation: 06/01/18 Time of Evaluation: 10:00 - Subjective Subjective: Neurology Consult note for Dr. Jose Figueroa PGY2 Patient seen and examined at bedside in no acute distress. Patient is unable Objective - Vital Signs/Intake and Output Vital Signs (last 24 hours): Temp Pulse Resp BP Pulse Ox 98.2 F 119 H 20 186/108 H 95 06/01/18 00:00 06/01/18 06:00 06/01/18 00:00 06/01/18 09:28 06/01/18 00:00 Intake and Output: 06/01/18 06/01/18 06:59 18:59 Intake Total 655 Output Total 450 Balance 205 - Medications Medications: Current Medications Acetaminophen (Tylenol 325mg Tab) 650 mg PO Q6H PRN PRN Reason: Pain, moderate (4-7) Last Admin: 06/01/18 03:46 Dose: 650 mg Amlodipine Besylate (Norvasc) 10 mg PO DAILY [facility] Last Admin: 06/01/18 09:28 Dose: 10 mg Aspirin (Ecotrin) 81 mg PO 0800 [facility] Last Admin: 06/01/18 09:39 Dose: 81 mg Clotrimazole (Lotrimin 1%) 0 gm TOP BID [facility] Last Admin: 06/01/18 00:15 Dose: Not Given Hydralazine HCl (Apresoline) 10 mg IVP Q6H PRN PRN Reason: Systolic Blood Pressure Last Admin: 05/31/18 22:52 Dose: 10 mg Lidocaine (Lidoderm) 1 ea TD DAILY [facility] Last Admin: 06/01/18 09:39 Dose: 1 ea Prednisone (Prednisone Tab) 60 mg PO DAILY [facility] Last Admin: 06/01/18 09:28 Dose: 60 mg - Labs Labs: 06/01/18 06:30 06/01/18 06:30 PT 12.1 SECONDS (9.4-12.5) 05/31/18 13:35 INR 1.06 05/31/18 13:35 APTT 27.9 Seconds (25.1-36.5) 05/31/18 13:35
[2018-06-01] MEDS ORDERED: Sodium Chloride 0.9% 500 ML IV STA (13:59)
[2018-06-01] MEDS ORDERED: Sodium Chloride 0.9% 250 ML IV STA (14:11)
--- NOTE | 2018-06-01 14:34 | CP.PCM.HP ---
Past Patient History - Past Social History Smoking Status: Never Smoked - CARDIAC Hx Hypertension: Yes - PULMONARY Hx Respiratory Disorders: No - NEUROLOGICAL Hx Neurological Disorder: No - HEENT Hx HEENT Problems: Yes (RIGHT LAZY EYE) - RENAL Hx Chronic Kidney Disease: No - ENDOCRINE/METABOLIC Hx Endocrine Disorders: No - HEMATOLOGICAL/ONCOLOGICAL Hx Blood Disorders: No - INTEGUMENTARY Hx Dermatological Problems: Yes (TINEA CORPORIS) Other/Comment: 05-31-18 MASD UNER THE SKIN FOLD OF STOMACH, BILATERAL GROIN AREA,PERIRECTAL AND PERINEAL AREA WITH REDNESS,HAS IASD. - MUSCULOSKELETAL/RHEUMATOLOGICAL Hx Musculoskeletal Disorders: Yes Hx Back Pain: Yes (CHRONIC) Hx Falls: Yes (MULTIPLE) - GASTROINTESTINAL Hx Gastrointestinal Disorders: No - GENITOURINARY/GYNECOLOGICAL Hx Genitourinary Disorders: No - PSYCHIATRIC Hx Psychophysiologic Disorder: Yes (OBESITY) Hx Substance Use: No - SURGICAL HISTORY Hx Surgeries: No - ANESTHESIA Hx Anesthesia Reactions: No Meds Allergies/Adverse Reactions: Allergies Allergy/AdvReac Type Severity Reaction Status Date / Time No Known Allergies Allergy Verified 05/31/18 20:50 Results - Vital Signs Recent Vital Signs: Last Vital Signs Temp 98.2 F 06/01/18 00:00 Pulse 119 H 06/01/18 06:00 Resp 20 06/01/18 00:00 BP 186/108 H 06/01/18 09:28 Pulse Ox 95 06/01/18 00:00 - Labs Result Diagrams: 06/01/18 06:30 06/01/18 06:30 Labs: Laboratory Results - last 24 hr 05/31/18 05/31/18 05/31/18 13:35 13:35 13:35 WBC 9.4 RBC 4.99 Hgb 13.2 Hct 42.5 MCV 85.2 MCH 26.5 MCHC 31.1 RDW 15.1 H Plt Count 321 MPV 11.0 Gran % 76.2 H Lymph % (Auto) 18.2 L [place] % (Auto) 4.3 Eos % (Auto) 1.0 L Baso % (Auto) 0.3 Gran # 7.14 H Lymph # (Auto) 1.7 [place] # (Auto) 0.4 Eos # (Auto) 0.1 Baso # (Auto) 0.03 ESR 23 H PT INR APTT Sodium 142 Potassium 3.5 L Chloride 105 Carbon Dioxide 29 Anion Gap 11 BUN 16 Creatinine 0.5 L Est GFR ( Amer) > 60 Est GFR (Non-Af Amer) > 60 Random Glucose 106 Calcium 9.2 Phosphorus Magnesium 2.3 H Total Bilirubin 0.5 AST 49 H ALT 41 Alkaline Phosphatase 68 Total Creatine Kinase 167 C-Reactive Protein 8.90 Total Protein 7.7 Albumin 4.2 Globulin 3.5 Albumin/Globulin Ratio 1.2 Triglycerides Cholesterol LDL Cholesterol Direct HDL Cholesterol Lipase 119 Beta HCG, Quant < 2.39 05/31/18 06/01/18 06/01/18 13:35 06:30 06:30 WBC 9.6 RBC 5.08 Hgb 13.7 Hct 42.9 MCV 84.4 MCH 27.0 MCHC 31.9 RDW 15.0 H Plt Count 337 MPV 10.7 Gran % 70.3 H Lymph % (Auto) 23.4 [place] % (Auto) 5.8 Eos % (Auto) 0.3 L Baso % (Auto) 0.2 Gran # 6.76 H Lymph # (Auto) 2.3 [place] # (Auto) 0.6 Eos # (Auto) 0.0 Baso # (Auto) 0.02 ESR PT 12.1 INR 1.06 APTT 27.9 Sodium 141 Potassium 4.8 Chloride 104 Carbon Dioxide 32 Anion Gap 10 BUN 15 Creatinine 0.5 L Est GFR ( Amer) > 60 Est GFR (Non-Af Amer) > 60 Random Glucose 111 H Calcium 9.5 Phosphorus 4.2 Magnesium 2.4 H Total Bilirubin 0.5 AST 39 H D ALT 31 Alkaline Phosphatase 62 Total Creatine Kinase C-Reactive Protein Total Protein 7.7 Albumin 4.2 Globulin 3.5 Albumin/Globulin Ratio 1.2 Triglycerides 338 H Cholesterol 212 H LDL Cholesterol Direct 129 HDL Cholesterol 30 Lipase Beta HCG, Quant
--- NOTE | 2018-06-01 15:04 | MRI ---
Date of service: 06/01/2018 PROCEDURE: MR LUMBAR SPINE WITHOUT CONTRAST HISTORY: back pain COMPARISON: Comparison made with prior CT scan lumbar spine 05/31/2018. TECHNIQUE: Multiecho multiplanar sequences were performed through the lumbar spine without the use of intravenous contrast. FINDINGS: Note the examination is somewhat limited by motion artifact. The the the no acute compression fractures nor retropulsed fragments. Vertebral bodies exhibit relatively normal stature. Vertebral bodies and facets normally aligned. No paraspinal soft tissue abnormalities are identified. Conus terminates at approximately the mid L2 level. T12-L1: No disc herniation, spinal canal stenosis or neural foraminal narrowing. L1-2: No disc herniation, spinal canal stenosis or neural foraminal narrowing. L2-3: Adequate disc height and hydration. No disc herniation however some minimal broad-based disc bulging changes are present. Facets also mildly hypertrophic. Central canal exit foramina adequate. L3-4: There is disc space narrowing with cortical endplate irregularity and type 2 (fatty replaced) discogenic sclerosis.. Vacuum disc phenomena is less well seen on this study as compared to prior CT scan. There is an asymmetric osteophytic ridge disc complex that compresses the ventral surface of the thecal sac and mildly posteriorly displaces the nearly exiting intrathecal L4 nerve roots. Exit foramina are narrowed on the right side and marginal to adequate on the left. Facet joints also mildly hypertrophic. L4-5: There is adequate disc height and hydration. No disc herniation however some very minimal left bowel parasagittal disc bulging changes are present. Facets are hypertrophic. Central canal and exit foramina appear adequate. L5-S1: There is disc desiccation, disc space narrowing with mild type 2 discogenic sclerosis. Small amount of vacuum phenomena also poorly seen on this exam. There is a moderate-sized asymmetric disc herniation ridge complex larger on the left side than the right with compressive effects on the left anterolateral border of the thecal sac which is displaced posteromedially to the right. There is also apparent compression and posterior displacement of the left-sided S1 nerve root as well.. Disc extends into the left exit foramen with left-sided foraminal stenosis and compression of the left L5 nerve root. Facets also hypertrophic bilaterally. Right exit foramen is adequate. OTHER FINDINGS: None. IMPRESSION: No acute fractures. Multilevel degenerative spondylosis most significantly affecting the L5-S1 level where there is a large asymmetric disc ridge complex larger on the left side than right with moderate compressive effects of on the left anterolateral border of the thecal sac and presumed posterior compression/displacement of the left-sided descending S1 nerve root.
[2018-06-01] MEDS ORDERED: Metoprolol 1 mg/ml Inj IVP ONE (17:28)
--- NOTE | 2018-06-01 18:13 | CP.PCM.CON ---
History of Present Illness - History of Present Illness History of Present Illness: Neurology consult note for Dr. Garcia Patient is a 48 year old female with past medical history of hypertension and obesity presenting with chief complaint of increasing weakness in her lwoer extremities with associated left sided hamstring pain which began about one week prior. She states she hadn't gone to the gym for a week and when she went she possibly overexerted herself while riding the stationary bike which was when the pain had started. The following three day patient states she was having trouble walking on both legs but was able to ambulate by holding on to things for support. By Saturday patient states she couldn't walk at all without a walker and needed to be lifted up by her , Patient states that due to her b/l weakness she has experienced a few falls which are mechanical in origin. Patient states that yesterday she woke up with her latest presentation which included right mouth droopy, left eye tearing, and changes in vision bilaterally. Patient states she has never experienced this before. PMD: Dr. Mondragon PMH: HTN, obesity PSH: none SHx: denies alcohol, tobacco, illicit drug use FHx: Father (CKD, M.I.) Allergies: NKDA Review of Systems - Constitutional Constitutional: Weakness. absent: Chills, Fever Past Patient History - Past Social History Smoking Status: Never Smoked - CARDIAC Hx Hypertension: Yes - PULMONARY Hx Respiratory Disorders: No - NEUROLOGICAL Hx Neurological Disorder: No - HEENT Hx HEENT Problems: Yes (RIGHT LAZY EYE) - RENAL Hx Chronic Kidney Disease: No - ENDOCRINE/METABOLIC Hx Endocrine Disorders: No - HEMATOLOGICAL/ONCOLOGICAL Hx Blood Disorders: No - INTEGUMENTARY Hx Dermatological Problems: Yes (TINEA CORPORIS) Other/Comment: 05-31-18 MASD UNER THE SKIN FOLD OF STOMACH, BILATERAL GROIN AREA,PERIRECTAL AND PERINEAL AREA WITH REDNESS,HAS IASD. - MUSCULOSKELETAL/RHEUMATOLOGICAL Hx Musculoskeletal Disorders: Yes Hx Back Pain: Yes (CHRONIC) Hx Falls: Yes (MULTIPLE) - GASTROINTESTINAL Hx Gastrointestinal Disorders: No - GENITOURINARY/GYNECOLOGICAL Hx Genitourinary Disorders: No - PSYCHIATRIC Hx Psychophysiologic Disorder: Yes (OBESITY) Hx Substance Use: No - SURGICAL HISTORY Hx Surgeries: No - ANESTHESIA Hx Anesthesia Reactions: No Meds Allergies/Adverse Reactions: Allergies Allergy/AdvReac Type Severity Reaction Status Date / Time No Known Allergies Allergy Verified 05/31/18 20:50 - Medications Medications: Current Medications Acetaminophen (Tylenol 325mg Tab) 650 mg PO Q6H PRN PRN Reason: Pain, moderate (4-7) Last Admin: 06/01/18 03:46 Dose: 650 mg Amlodipine Besylate (Norvasc) 10 mg PO DAILY [facility] Last Admin: 06/01/18 09:28 Dose: 10 mg Aspirin (Ecotrin) 81 mg PO 0800 [facility] Last Admin: 06/01/18 09:39 Dose: 81 mg Atorvastatin Calcium (Lipitor) 20 mg PO DIN [facility] Clotrimazole (Lotrimin 1%) 0 gm TOP BID [facility] Last Admin: 06/01/18 00:15 Dose: Not Given Hydralazine HCl (Apresoline) 10 mg IVP Q6H PRN PRN Reason: Systolic Blood Pressure Last Admin: 06/01/18 16:03 Dose: 10 mg Lidocaine (Lidoderm) 1 ea TD DAILY [facility] Last Admin: 06/01/18 09:39 Dose: 1 ea Losartan Potassium (Cozaar) 25 mg PO DAILY [facility] Prednisone (Prednisone Tab) 60 mg PO DAILY [facility] Last Admin: 06/01/18 09:28 Dose: 60 mg Physical Exam - Head Exam Head Exam: ATRAUMATIC, NORMAL INSPECTION, NORMOCEPHALIC - Eye Exam Eye Exam: EOMI - ENT Exam ENT Exam: Mucous Membranes Moist - Respiratory Exam Respiratory Exam: Clear to Auscultation Bilateral, NORMAL BREATHING PATTERN. absent: Rhonchi, Wheezes - Cardiovascular Exam Cardiovascular Exam: REGULAR RHYTHM, +S1, +S2 - GI/Abdominal Exam GI & Abdominal Exam: Normal Bowel Sounds, Soft - Expanded Lower Extremities Exam Left Lower Leg Exam: absent: dislocation, ecchymosis, erythema Neuro vacular tendon exam: absent: abnormal 2-point discrimination, motor deficit, sensory deficit Right Lower Leg Exam: absent: crepitus, deformity, dislocation, erythema Foot/Toe exam: absent: crepitus, deformity Neuro vacular tendon exam: absent: abnormal 2-point discrimination, decreased fine/light touch, motor deficit, sensory deficit - Neurological Exam Neurological exam: Alert, CN II-XII Intact, Oriented x3 - Psychiatric Exam Psychiatric exam: Normal Affect, Normal Mood - Skin Skin Exam: Normal Color, Warm Results - Vital Signs Recent Vital Signs: Last Vital Signs Temp 98.4 F 06/01/18 17:55 Pulse 117 H 06/01/18 17:55 Resp 20 06/01/18 17:55 BP 168/98 H 06/01/18 17:55 Pulse Ox 95 06/01/18 17:55 - Labs Result Diagrams: 06/01/18 06:30 06/01/18 06:30 Labs: Laboratory Results - last 24 hr 05/31/18 06/01/18 06/01/18 13:35 06:30 06:30 WBC 9.6 RBC 5.08 Hgb 13.7 Hct 42.9 MCV 84.4 MCH 27.0 MCHC 31.9 RDW 15.0 H Plt Count 337 MPV 10.7 Gran % 70.3 H Lymph % (Auto) 23.4 [place] % (Auto) 5.8 Eos % (Auto) 0.3 L Baso % (Auto) 0.2 Gran # 6.76 H Lymph # (Auto) 2.3 [place] # (Auto) 0.6 Eos # (Auto) 0.0 Baso # (Auto) 0.02 Sodium 141 Potassium 4.8 Chloride 104 Carbon Dioxide 32 Anion Gap 10 BUN 15 Creatinine 0.5 L Est GFR ( Amer) > 60 Est GFR (Non-Af Amer) > 60 Random Glucose 111 H Calcium 9.5 Phosphorus 4.2 Magnesium 2.4 H Total Bilirubin 0.5 AST 39 H D ALT 31 Alkaline Phosphatase 62 C-Reactive Protein 8.90 Total Protein 7.7 Albumin 4.2 Globulin 3.5 Albumin/Globulin Ratio 1.2 Triglycerides 338 H Cholesterol 212 H LDL Cholesterol Direct 129 HDL Cholesterol 30 Assessment & Plan - Assessment and Plan (Free Text) Assessment: Chaudhary's Palsy -Continue prednisone -F/U MRI brain and lumbar spine
[2018-06-01] MEDS: Aritificial Tears (15ml) OU PRN (21:52)
[2018-06-01] MEDS ORDERED: Oxycodone/Acetaminophen 5/325 mg Tab PO STA (23:54)
--- NOTE | 2018-06-02 06:53 | CP.PCM.PN ---
<Diogenes Bernal L - Last Filed: 06/02/18 16:11> Subjective - Date & Time of Evaluation Date of Evaluation: 06/02/18 Time of Evaluation: 06:52 - Subjective Subjective: Resident Progress Note for Hospitalist Service Patient examined at bedside. No acute events overnight. Patient states her weakness is unchanged from day prior. Pain is well managed. She is tolerating PO intake. Denies fevers, chills, chest pain, shortness of breath, abdominal pain, diarrhea. Objective - Vital Signs/Intake and Output Vital Signs (last 24 hours): Temp Pulse Resp BP Pulse Ox 98.8 F 88 20 151/92 H 96 06/02/18 00:00 06/02/18 02:00 06/02/18 00:00 06/02/18 00:00 06/02/18 00:00 Intake and Output: 06/01/18 06/02/18 18:59 06:59 Intake Total 1420 Output Total 750 Balance 670 - Medications Medications: Current Medications Acetaminophen (Tylenol 325mg Tab) 650 mg PO Q6H PRN PRN Reason: Pain, moderate (4-7) Last Admin: 06/01/18 22:44 Dose: 650 mg Amlodipine Besylate (Norvasc) 10 mg PO DAILY [facility] Last Admin: 06/01/18 09:28 Dose: 10 mg Artificial Tears (Artificial Tears) 0 ml OU BID PRN PRN Reason: Dry eyes Last Admin: 06/01/18 21:52 Dose: 2 drop Aspirin (Ecotrin) 81 mg PO 0800 [facility] Last Admin: 06/01/18 09:39 Dose: 81 mg Atorvastatin Calcium (Lipitor) 20 mg PO DIN [facility] Clotrimazole (Lotrimin 1%) 0 gm TOP BID [facility] Last Admin: 06/01/18 18:48 Dose: 1 applic Hydralazine HCl (Apresoline) 10 mg IVP Q6H PRN PRN Reason: Systolic Blood Pressure Last Admin: 06/01/18 16:03 Dose: 10 mg Lidocaine (Lidoderm) 1 ea TD DAILY [facility] Last Admin: 06/01/18 09:39 Dose: 1 ea Losartan Potassium (Cozaar) 25 mg PO DAILY [facility] Last Admin: 06/01/18 18:41 Dose: 25 mg Prednisone (Prednisone Tab) 60 mg PO DAILY [facility] Last Admin: 06/01/18 09:28 Dose: 60 mg - Labs Labs: 06/01/18 06:30 06/01/18 06:30 PT 12.1 SECONDS (9.4-12.5) 05/31/18 13:35 INR 1.06 05/31/18 13:35 APTT 27.9 Seconds (25.1-36.5) 05/31/18 13:35 - Additional Findings Additional findings: - Constitutional Appears: Non-toxic, No Acute Distress - Head Exam Head Exam: ATRAUMATIC, NORMOCEPHALIC Additional comments: left facial droop - Eye Exam Eye Exam: EOMI, Normal appearance - Respiratory Exam Respiratory Exam: Clear to Auscultation Bilateral, NORMAL BREATHING PATTERN. absent: Wheezes - Cardiovascular Exam Cardiovascular Exam: REGULAR RHYTHM, +S1, +S2. absent: Tachycardia, Systolic Murmur - GI/Abdominal Exam GI & Abdominal Exam: Soft. absent: Firm, Guarding, Rebound, Rigid, Tenderness Additional comments: erythematous rash noted in intertriginous folds bruises noted in lower quadrants - Extremities Exam Extremities exam: Positive for: full ROM, normal capillary refill, pedal pulses present. Negative for: calf tenderness, pedal edema, tenderness - Neurological Exam Neurological exam: Alert, CN II-XII Intact, Oriented x3, Reflexes Normal Additional comments: mild dysmetria - Expanded Neurological Exam Expanded Patient oriented to: person, place, time Speech: Slurred Speech Cranial nerves: EOM's Intact: Normal, Facial Sensation: Normal, Tongue Deviation: Normal Cerebellar Function: Finger to Nose: Normal Upper motor neuron: Babinski Sign: Normal Neuro motor strength exam: Left Upper Extremity: 5, Right Upper Extremity: 5, Left Lower Extremity: 5, Right Lower Extremity: 5 DTR: Bicep Left: 2+, Bicep Right: 2+, Brachioradialis Left: 2+, Brachioradialis Right: 2+, Patellar Left: 2+, Patellar Right: 2+ Coma Scale Eye Opening: SPONTANEOUS Coma Scale Motor Response: OBEYS COMMANDS Coma Scale Verbal: Oriented Coma Scale Total: 15 - Psychiatric Exam Psychiatric exam: Normal Affect, Normal Mood - Skin Skin Exam: Dry, Intact, Normal Color Assessment and Plan - Assessment and Plan (Free Text) Assessment: Patient is a 48 year old female with past medical history of HTN and obesity admitted for workup and management of weakness, BLE pain, slurred speech, facial droop. Plan: Weakness - Chaudhary's palsy vs. TIA vs. stroke - In ED given 325 mg aspirin, 6 mg morphine, 60 mg prednisone, 1 gm valacycovir - Head CT negative for intracranial abnormalities - Lumbar CT shows degenerative changes mid and lower lumbar spine/lumbosacral junction, most notable at L5-S1 including grade 1 retrolisthesis. Proliferative degenerative changes extend into exiting neural foramen on the left - Lumbar spine MRI shows no acute fractures, multilevel degenrative spondylosis most affecting L5-S1, moderate compressive effects of left anterolateral border of thecal sac, presumed posterior compression/displacement of S1 nerve root - LE dopplers unremarkable - Lyme titers, herpes - Neurology and PT consulted. Appreciate recs. - prednisone 60 mg PO daily - NS @ 100 ccs/hr - MRI unable to be completed due to patient's kyphosis HTN - continue home med amlodipine 10 mg PO daily - Lisinopril 20 mg PO daily - Hydralazine 10 mg Q6H PRN Abdominal rash - Clotrimazole cream PPX - SCDs - No GI ppx indicated at this time Case discussed with Dr. Shy Bernal PGY-1 <Marisol Begum - Last Filed: 06/02/18 17:51> Objective - Vital Signs/Intake and Output Vital Signs (last 24 hours): Temp Pulse Resp BP Pulse Ox 98.2 F 119 H 20 138/97 H 97 06/02/18 17:30 06/02/18 17:30 06/02/18 17:30 06/02/18 17:30 06/02/18 17:30 Intake and Output: 06/02/18 06/02/18 06:59 18:59 Intake Total 120 Balance 120 - Medications Medications: Current Medications Acetaminophen (Tylenol 325mg Tab) 650 mg PO Q6H PRN PRN Reason: Pain, moderate (4-7) Last Admin: 06/01/18 22:44 Dose: 650 mg Amlodipine Besylate (Norvasc) 10 mg PO DAILY [facility] Last Admin: 06/02/18 09:20 Dose: 10 mg Artificial Tears (Artificial Tears) 0 ml OU BID PRN PRN Reason: Dry eyes Last Admin: 06/01/18 21:52 Dose: 2 drop Aspirin (Ecotrin) 81 mg PO 0800 [facility] Last Admin: 06/02/18 09:19 Dose: 81 mg Atorvastatin Calcium (Lipitor) 20 mg PO DIN [facility] Clotrimazole (Lotrimin 1%) 0 gm TOP BID [facility] Last Admin: 06/02/18 09:20 Dose: 1 applic Hydralazine HCl (Apresoline) 10 mg IVP Q6H PRN PRN Reason: Systolic Blood Pressure Last Admin: 06/01/18 16:03 Dose: 10 mg Lidocaine (Lidoderm) 1 ea TD DAILY [facility] Last Admin: 06/02/18 09:19 Dose: 1 ea Lisinopril (Zestril) 20 mg PO DAILY [facility] Prednisone (Prednisone Tab) 60 mg PO DAILY [facility] Last Admin: 06/02/18 09:21 Dose: 60 mg - Labs Labs: 06/02/18 06:30 06/02/18 06:30 PT 12.1 SECONDS (9.4-12.5) 05/31/18 13:35 INR 1.06 05/31/18 13:35 APTT 27.9 Seconds (25.1-36.5) 05/31/18 13:35 Attending/Attestation - Attestation I have personally seen and examined this patient.: Yes I have fully participated in the care of the patient.: Yes I have reviewed all pertinent clinical information, including history, physical exam and plan: Yes Notes (Text): 06/02/18 17:36 48 year old female with past medical history of hypertension who presented with complaint of falls, back pain and leg pain/weakness for past few days. Also complained of facial droop x 2 days. ?Chaudhary's palsy vs TIA/CVA. CT head was negative for acute findings. CT lumbar spine reviewed showed degenerative changes mid and lower lumbar spine / lumbosacral junction, most notable at L5- S1. MRI spine showed no acute fracture; multilevel degenerative spondylosis most significantly affecting L5-S1 level where this a large asymmetric disc ridge complex larger on the left side than right with moderate compressive effects on the left anterolateral border of the thecal sac and presumed posterior compression / displacement of the left sided descending S1 nerve root. MRI brain is still pending. Neurology is following. Patient is on aspirin, statin and trial of prednisone. PT evaluation was appreciated who recommended for possible NIKOLE. She is on norvasc, lisinopril and hydralazine prn for hypertension. Marisol Begum MD Hospitalist.
[2018-06-02 07:02] LABS: BASO # 0.02 K/mm3 (0.0-2.0); BASO % 0.2 % (0.0-3.0); EOS % 0.5 % (1.5-5.0); GRAN # 5.86 (1.4-6.5); GRAN % 69.5 % (50.0-68.0); HEMOGLOBIN 13.8 g/dL (12.0-16.0); LYMPH # 1.8 (1.2-3.4); LYMPH % 21.5 % (22.0-35.0); MEAN CELL VOLUME 85.4 fl (80.0-105.0); MEAN CORPUSCULAR HEMOGLOBIN 26.8 pg (25.0-35.0); MEAN CORPUSCULAR HGB CONC 31.4 g/dl (31.0-37.0); MEAN PLATELET VOLUME 10.9 fl (7.0-11.0); MONO # 0.7 (0.1-0.6); MONO % 8.3 % (1.0-6.0); RBC 5.15 10^6/uL (3.5-6.1); RED CELL DISTRIBUTION WIDTH 15.4 % (11.5-14.5); WHITE BLOOD COUNT 8.4 10^3/uL (4.5-11.0)
[2018-06-02 07:06] LABS: ALB/GLOB RATIO 1.2 (1.1-1.8); ALBUMIN 4.2 g/dL (3.0-4.8); ALT/SGPT 30 U/L (7-56); AST/SGOT 38 U/L (14-36); BLOOD UREA NITROGEN 23 mg/dL (7-21); CALCIUM 9.7 mg/dL (8.4-10.5); GFR NON-AFRICAN AMERICAN > 60
[2018-06-02] MEDS ORDERED: Morphine 2 mg/ml ISec IVP ONE (09:10)
[2018-06-02] MEDS: Lidocaine 5% Patch TD SCH (09:19)
[2018-06-02] MEDS: Clotrimazole 1% Cream(30 gm) TOP SCH ×2 (09:20→17:56)
[2018-06-02] MEDS: Aritificial Tears (15ml) OU PRN (18:08)
[2018-06-03] MEDS ORDERED: Morphine 2 mg/ml ISec IVP STA (03:32)
[2018-06-03 07:08] LABS: BASO # 0.03 K/mm3 (0.0-2.0); BASO % 0.3 % (0.0-3.0); EOS % 0.4 % (1.5-5.0); GRAN # 6.35 (1.4-6.5); GRAN % 65.5 % (50.0-68.0); LYMPH # 2.5 (1.2-3.4); LYMPH % 25.8 % (22.0-35.0); MEAN CORPUSCULAR HEMOGLOBIN 26.9 pg (25.0-35.0); MEAN CORPUSCULAR HGB CONC 31.3 g/dl (31.0-37.0); MEAN PLATELET VOLUME 11.1 fl (7.0-11.0); MONO # 0.8 (0.1-0.6); RBC 5.2 10^6/uL (3.5-6.1); RED CELL DISTRIBUTION WIDTH 15.5 % (11.5-14.5); WHITE BLOOD COUNT 9.7 10^3/uL (4.5-11.0)
[2018-06-03 07:27] LABS: ALB/GLOB RATIO 1.2 (1.1-1.8); ALT/SGPT 32 U/L (7-56); AST/SGOT 35 U/L (14-36); BLOOD UREA NITROGEN 23 mg/dL (7-21); CALCIUM 9.7 mg/dL (8.4-10.5); GFR NON-AFRICAN AMERICAN > 60
[2018-06-03] MEDS: Clotrimazole 1% Cream(30 gm) TOP SCH ×2 (09:17→17:14)
[2018-06-03] MEDS: Oxycodone/Acetaminophen 5/325 mg Tab PO PRN ×2 (10:40→18:36)
--- NOTE | 2018-06-03 11:48 | CP.PCM.CON ---
History of Present Illness - History of Present Illness History of Present Illness: Pt with multiple issues,diffuse pain and small L5/S1 disc prolapse agree with current plan : pain control nsaids and PT Past Patient History - Past Social History Smoking Status: Never Smoked - CARDIAC Hx Hypertension: Yes - PULMONARY Hx Respiratory Disorders: No - NEUROLOGICAL Hx Neurological Disorder: No - HEENT Hx HEENT Problems: Yes (RIGHT LAZY EYE) - RENAL Hx Chronic Kidney Disease: No - ENDOCRINE/METABOLIC Hx Endocrine Disorders: No - HEMATOLOGICAL/ONCOLOGICAL Hx Blood Disorders: No - INTEGUMENTARY Hx Dermatological Problems: Yes (TINEA CORPORIS) Other/Comment: 05-31-18 MASD UNER THE SKIN FOLD OF STOMACH, BILATERAL GROIN AREA,PERIRECTAL AND PERINEAL AREA WITH REDNESS,HAS IASD. - MUSCULOSKELETAL/RHEUMATOLOGICAL Hx Musculoskeletal Disorders: Yes Hx Back Pain: Yes (CHRONIC) Hx Falls: Yes (MULTIPLE) - GASTROINTESTINAL Hx Gastrointestinal Disorders: No - GENITOURINARY/GYNECOLOGICAL Hx Genitourinary Disorders: No - PSYCHIATRIC Hx Substance Use: No - SURGICAL HISTORY Hx Surgeries: No - ANESTHESIA Hx Anesthesia Reactions: No Meds Allergies/Adverse Reactions: Allergies Allergy/AdvReac Type Severity Reaction Status Date / Time No Known Allergies Allergy Verified 05/31/18 20:50 - Medications Medications: Current Medications Acetaminophen (Tylenol 325mg Tab) 650 mg PO Q6H PRN PRN Reason: Pain, moderate (4-7) Last Admin: 06/02/18 21:50 Dose: 650 mg Amlodipine Besylate (Norvasc) 10 mg PO DAILY [facility] Last Admin: 06/03/18 06:26 Dose: 10 mg Artificial Tears (Artificial Tears) 0 ml OU BID PRN PRN Reason: Dry eyes Last Admin: 06/02/18 18:08 Dose: 2 drop Aspirin (Ecotrin) 81 mg PO 0800 [facility] Last Admin: 06/03/18 09:16 Dose: 81 mg Atorvastatin Calcium (Lipitor) 20 mg PO DIN [facility] Last Admin: 06/02/18 17:56 Dose: 20 mg Clotrimazole (Lotrimin 1%) 0 gm TOP BID [facility] Last Admin: 06/03/18 09:17 Dose: 1 applic Hydralazine HCl (Apresoline) 10 mg IVP Q6H PRN PRN Reason: Systolic Blood Pressure Last Admin: 06/01/18 16:03 Dose: 10 mg Lidocaine (Lidoderm) 1 ea TD DAILY [facility] Last Admin: 06/02/18 09:19 Dose: 1 ea Lisinopril (Zestril) 30 mg PO DAILY [facility] Last Admin: 06/03/18 10:40 Dose: 30 mg Oxycodone/Acetaminophen (Percocet 5/325 Mg Tab) 1 tab PO Q6H PRN PRN Reason: Pain, severe (8-10) Stop: 06/06/18 10:00 Last Admin: 06/03/18 10:40 Dose: 1 tab Prednisone (Prednisone Tab) 60 mg PO DAILY [facility] Last Admin: 06/03/18 09:18 Dose: 60 mg Results - Vital Signs Recent Vital Signs: Last Vital Signs Temp 97.5 F L 06/03/18 07:55 Pulse 80 06/03/18 10:40 Resp 20 06/03/18 07:55 BP 141/90 06/03/18 10:40 Pulse Ox 94 L 06/03/18 07:55 - Labs Result Diagrams: 06/03/18 06:00 06/03/18 06:00 Labs: Laboratory Results - last 24 hr 06/03/18 06/03/18 06:00 06:00 WBC 9.7 RBC 5.20 Hgb 14.0 Hct 44.7 MCV 86.0 MCH 26.9 MCHC 31.3 RDW 15.5 H Plt Count 363 MPV 11.1 H Gran % 65.5 Lymph % (Auto) 25.8 [place] % (Auto) 8.0 H Eos % (Auto) 0.4 L Baso % (Auto) 0.3 Gran # 6.35 Lymph # (Auto) 2.5 [place] # (Auto) 0.8 H Eos # (Auto) 0.0 Baso # (Auto) 0.03 Sodium 142 Potassium 4.8 Chloride 105 Carbon Dioxide 31 Anion Gap 11 BUN 23 H Creatinine 0.7 Est GFR ( Amer) > 60 Est GFR (Non-Af Amer) > 60 Random Glucose 117 H Calcium 9.7 Phosphorus 5.9 H Magnesium 2.4 H Total Bilirubin 0.5 AST 35 ALT 32 Alkaline Phosphatase 58 Total Protein 7.4 Albumin 4.0 Globulin 3.4 Albumin/Globulin Ratio 1.2
--- NOTE | 2018-06-03 12:46 | CP.PCM.PN ---
<Keyshawn Mcbride - Last Filed: 06/03/18 12:42> Subjective - Date & Time of Evaluation Date of Evaluation: 06/03/18 Time of Evaluation: 08:30 - Subjective Subjective: Patient seen and examined. Patient states back pain is not controlled with current pain regimen. Patient also admits to blurry vision. Denies chest pain, shortness of breath, nausea, vomiting, diarrhea, fever, chills. Objective - Vital Signs/Intake and Output Vital Signs (last 24 hours): Temp Pulse Resp BP Pulse Ox 97.5 F L 80 20 141/90 94 L 06/03/18 07:55 06/03/18 10:40 06/03/18 07:55 06/03/18 10:40 06/03/18 07:55 Intake and Output: 06/03/18 06/03/18 06:59 18:59 Intake Total 240 Balance 240 - Medications Medications: Current Medications Acetaminophen (Tylenol 325mg Tab) 650 mg PO Q6H PRN PRN Reason: Pain, moderate (4-7) Last Admin: 06/02/18 21:50 Dose: 650 mg Amlodipine Besylate (Norvasc) 10 mg PO DAILY [facility] Last Admin: 06/03/18 06:26 Dose: 10 mg Artificial Tears (Artificial Tears) 0 ml OU BID PRN PRN Reason: Dry eyes Last Admin: 06/02/18 18:08 Dose: 2 drop Aspirin (Ecotrin) 81 mg PO 0800 [facility] Last Admin: 06/03/18 09:16 Dose: 81 mg Atorvastatin Calcium (Lipitor) 20 mg PO DIN [facility] Last Admin: 06/02/18 17:56 Dose: 20 mg Clotrimazole (Lotrimin 1%) 0 gm TOP BID [facility] Last Admin: 06/03/18 09:17 Dose: 1 applic Hydralazine HCl (Apresoline) 10 mg IVP Q6H PRN PRN Reason: Systolic Blood Pressure Last Admin: 06/01/18 16:03 Dose: 10 mg Lidocaine (Lidoderm) 1 ea TD DAILY [facility] Last Admin: 06/02/18 09:19 Dose: 1 ea Lisinopril (Zestril) 30 mg PO DAILY [facility] Last Admin: 06/03/18 10:40 Dose: 30 mg Oxycodone/Acetaminophen (Percocet 5/325 Mg Tab) 1 tab PO Q6H PRN PRN Reason: Pain, severe (8-10) Stop: 06/06/18 10:00 Last Admin: 06/03/18 10:40 Dose: 1 tab Prednisone (Prednisone Tab) 60 mg PO DAILY [facility] Last Admin: 06/03/18 09:18 Dose: 60 mg - Labs Labs: 06/03/18 06:00 06/03/18 06:00 PT 12.1 SECONDS (9.4-12.5) 05/31/18 13:35 INR 1.06 05/31/18 13:35 APTT 27.9 Seconds (25.1-36.5) 05/31/18 13:35 - Constitutional Appears: Non-toxic, No Acute Distress - Head Exam Head Exam: ATRAUMATIC, NORMAL INSPECTION, NORMOCEPHALIC - Eye Exam Additional comments: Left eye rotated mildly inward - ENT Exam ENT Exam: Mucous Membranes Moist - Respiratory Exam Respiratory Exam: Decreased Breath Sounds, NORMAL BREATHING PATTERN - Cardiovascular Exam Cardiovascular Exam: RRR, +S1, +S2 - GI/Abdominal Exam GI & Abdominal Exam: Soft, Normal Bowel Sounds. absent: Tenderness - Extremities Exam Extremities Exam: Normal Inspection. absent: Pedal Edema - Back Exam Back Exam: muscle spasm, paraspinal tenderness - Neurological Exam Neurological Exam: Alert, Awake, Oriented x3 - Psychiatric Exam Psychiatric exam: Normal Affect, Normal Mood - Skin Skin Exam: Dry, Intact, Warm Assessment and Plan - Assessment and Plan (Free Text) Plan: 48 year old female with past medical history of HTN and obesity presenting with bilateral lower extremity pain and weakness, along with facial droop. B/l lower extremity weakness - Lumbar CT shows degenerative changes mid and lower lumbar spine/lumbosacral junction, most notable at L5-S1 including grade 1 retrolisthesis. 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 - Prednisone 60 mg daily - Brain MRI pending HTN - Lisinopril increased to 30 mg daily - Amlodipine 10 mg PO daily - Hydralazine 10 mg Q6H PRN Abdominal rash - Clotrimazole cream PPX - SCDs Matthewandres, PGY-3 <Marisol Begum - Last Filed: 06/03/18 13:25> Objective - Vital Signs/Intake and Output Vital Signs (last 24 hours): Temp Pulse Resp BP Pulse Ox 97.5 F L 80 20 141/90 94 L 06/03/18 07:55 06/03/18 10:40 06/03/18 07:55 06/03/18 10:40 06/03/18 07:55 Intake and Output: 06/03/18 06/03/18 06:59 18:59 Intake Total 240 Balance 240 - Medications Medications: Current Medications Acetaminophen (Tylenol 325mg Tab) 650 mg PO Q6H PRN PRN Reason: Pain, moderate (4-7) Last Admin: 06/02/18 21:50 Dose: 650 mg Amlodipine Besylate (Norvasc) 10 mg PO DAILY [facility] Last Admin: 06/03/18 06:26 Dose: 10 mg Artificial Tears (Artificial Tears) 0 ml OU BID PRN PRN Reason: Dry eyes Last Admin: 06/02/18 18:08 Dose: 2 drop Aspirin (Ecotrin) 81 mg PO 0800 [facility] Last Admin: 06/03/18 09:16 Dose: 81 mg Atorvastatin Calcium (Lipitor) 20 mg PO DIN [facility] Last Admin: 06/02/18 17:56 Dose: 20 mg Clotrimazole (Lotrimin 1%) 0 gm TOP BID [facility] Last Admin: 06/03/18 09:17 Dose: 1 applic Hydralazine HCl (Apresoline) 10 mg IVP Q6H PRN PRN Reason: Systolic Blood Pressure Last Admin: 06/01/18 16:03 Dose: 10 mg Lidocaine (Lidoderm) 1 ea TD DAILY [facility] Last Admin: 06/02/18 09:19 Dose: 1 ea Lisinopril (Zestril) 30 mg PO DAILY [facility] Last Admin: 06/03/18 10:40 Dose: 30 mg Oxycodone/Acetaminophen (Percocet 5/325 Mg Tab) 1 tab PO Q6H PRN PRN Reason: Pain, severe (8-10) Stop: 06/06/18 10:00 Last Admin: 06/03/18 10:40 Dose: 1 tab Prednisone (Prednisone Tab) 60 mg PO DAILY [facility] Last Admin: 06/03/18 09:18 Dose: 60 mg - Labs Labs: 06/03/18 06:00 06/03/18 06:00 PT 12.1 SECONDS (9.4-12.5) 05/31/18 13:35 INR 1.06 05/31/18 13:35 APTT 27.9 Seconds (25.1-36.5) 05/31/18 13:35 Attending/Attestation - Attestation I have personally seen and examined this patient.: Yes I have fully participated in the care of the patient.: Yes I have reviewed all pertinent clinical information, including history, physical exam and plan: Yes Notes (Text): 06/03/18 13:24 48 year old female with past medical history of hypertension who presented with complaint of falls, back pain and leg pain/weakness for past few days. Also complained of facial droop x 2 days. ?Chaudhary's palsy vs TIA/CVA. CT head was negative for acute findings. MRI brain is pending. CT lumbar spine reviewed showed degenerative changes mid and lower lumbar spine / lumbosacral junction, most notable at L5-S1. MRI spine showed no acute fracture; multilevel degenerative spondylosis most significantly affecting L5-S1 level where this a large asymmetric disc ridge complex larger on the left side than right with moderate compressive effects on the left anterolateral border of the thecal sac and presumed posterior compression / displacement of the left sided descending S1 nerve root. Neurology is following. Patient is on aspirin, statin and trial of prednisone. Neurosurgery evaluation was appreciated as well. She is on lidoderm patch and percocet is added today. PT recommended for possible NIKOLE. She is on norvasc, lisinopril and hydralazine prn for hypertension. Marisol Begum MD Hospitalist.
[2018-06-03] MEDS: Aritificial Tears (15ml) OU PRN (18:37)
[2018-06-04] MEDS: Oxycodone/Acetaminophen 5/325 mg Tab PO PRN ×3 (01:07→20:07)
[2018-06-04 06:25] LABS: BASO # 0.04 K/mm3 (0.0-2.0); BASO % 0.4 % (0.0-3.0); EOS # 0.1 (0.0-0.7); EOS % 0.5 % (1.5-5.0); GRAN # 6.51 (1.4-6.5); GRAN % 64.7 % (50.0-68.0); HEMOGLOBIN 14.2 g/dL (12.0-16.0); LYMPH # 2.8 (1.2-3.4); LYMPH % 27.7 % (22.0-35.0); MEAN CELL VOLUME 86.1 fl (80.0-105.0); MEAN CORPUSCULAR HEMOGLOBIN 26.9 pg (25.0-35.0); MEAN CORPUSCULAR HGB CONC 31.3 g/dl (31.0-37.0); MEAN PLATELET VOLUME 10.8 fl (7.0-11.0); MONO # 0.7 (0.1-0.6); MONO % 6.7 % (1.0-6.0); RBC 5.27 10^6/uL (3.5-6.1); RED CELL DISTRIBUTION WIDTH 15.3 % (11.5-14.5); WHITE BLOOD COUNT 10.1 10^3/uL (4.5-11.0)
[2018-06-04 06:54] LABS: ALB/GLOB RATIO 1.3 (1.1-1.8); ALBUMIN 4.1 g/dL (3.0-4.8); ALT/SGPT 30 U/L (7-56); AST/SGOT 27 U/L (14-36); BLOOD UREA NITROGEN 22 mg/dL (7-21); GFR NON-AFRICAN AMERICAN > 60
[2018-06-04] MEDS: Lidocaine 5% Patch TD SCH ×2 (09:17→10:00)
[2018-06-04] MEDS: Clotrimazole 1% Cream(30 gm) TOP SCH ×2 (10:00→18:32)
--- NOTE | 2018-06-04 12:17 | CP.PCM.PN ---
<Omari Figueroa - Last Filed: 06/04/18 15:50> Subjective - Date & Time of Evaluation Date of Evaluation: 06/04/18 Time of Evaluation: 07:00 - Subjective Subjective: Patient seen and examined at bedside in no acute distress. Patient states she is ready to have MRI brain done today. States she still has blurry vision without w orsening or improvement since initial onset. Patient states she is still unable to smile or raise eyebrows. Denies any acute events overnight. Physical Exam - Head Exam Head Exam: ATRAUMATIC, NORMAL INSPECTION, NORMOCEPHALIC - Eye Exam Eye Exam: EOMI - ENT Exam ENT Exam: Mucous Membranes Moist - Respiratory Exam Respiratory Exam: Clear to Auscultation Bilateral, NORMAL BREATHING PATTERN. absent: Rhonchi, Wheezes - Cardiovascular Exam Cardiovascular Exam: REGULAR RHYTHM, +S1, +S2 - GI/Abdominal Exam GI & Abdominal Exam: Normal Bowel Sounds, Soft - Expanded Lower Extremities Exam Left Lower Leg Exam: absent: dislocation, ecchymosis, erythema Neuro vacular tendon exam: absent: abnormal 2-point discrimination, motor deficit, sensory deficit Right Lower Leg Exam: absent: crepitus, deformity, dislocation, erythema Foot/Toe exam: absent: crepitus, deformity Neuro vacular tendon exam: absent: abnormal 2-point discrimination, decreased fine/light touch, motor deficit, sensory deficit - Neurological Exam Neurological exam: Alert, CN II-XII Intact, Oriented x3 - Psychiatric Exam Psychiatric exam: Normal Affect, Normal Mood - Skin Skin Exam: Normal Color, Warm Objective - Vital Signs/Intake and Output Vital Signs (last 24 hours): Temp Pulse Resp BP Pulse Ox 97.4 F L 118 H 20 144/92 H 96 06/04/18 08:36 06/04/18 10:00 06/04/18 08:36 06/04/18 09:15 06/04/18 08:36 Intake and Output: 06/04/18 06/04/18 06:59 18:59 Intake Total 240 Balance 240 - Medications Medications: Current Medications Acetaminophen (Tylenol 325mg Tab) 650 mg PO Q6H PRN PRN Reason: Pain, moderate (4-7) Last Admin: 06/02/18 21:50 Dose: 650 mg Amlodipine Besylate (Norvasc) 10 mg PO DAILY [facility] Last Admin: 06/04/18 09:15 Dose: 10 mg Artificial Tears (Artificial Tears) 0 ml OU BID PRN PRN Reason: Dry eyes Last Admin: 06/03/18 18:37 Dose: 1 drop Aspirin (Ecotrin) 81 mg PO 0800 [facility] Last Admin: 06/04/18 09:15 Dose: 81 mg Atorvastatin Calcium (Lipitor) 20 mg PO DIN [facility] Last Admin: 06/03/18 17:14 Dose: 20 mg Clotrimazole (Lotrimin 1%) 0 gm TOP BID [facility] Last Admin: 06/03/18 17:14 Dose: 1 applic Hydralazine HCl (Apresoline) 10 mg IVP Q6H PRN PRN Reason: Systolic Blood Pressure Last Admin: 06/03/18 16:48 Dose: 10 mg Lidocaine (Lidoderm) 1 ea TD DAILY [facility] Last Admin: 06/04/18 09:17 Dose: 1 ea Lisinopril (Zestril) 30 mg PO DAILY [facility] Last Admin: 06/04/18 09:15 Dose: 30 mg Oxycodone/Acetaminophen (Percocet 5/325 Mg Tab) 1 tab PO Q6H PRN PRN Reason: Pain, severe (8-10) Stop: 06/06/18 10:00 Last Admin: 06/04/18 09:15 Dose: 1 tab Prednisone (Prednisone Tab) 60 mg PO DAILY [facility] Last Admin: 06/04/18 09:16 Dose: 60 mg - Labs Labs: 06/04/18 06:00 06/04/18 06:00 PT 12.1 SECONDS (9.4-12.5) 05/31/18 13:35 INR 1.06 05/31/18 13:35 APTT 27.9 Seconds (25.1-36.5) 05/31/18 13:35 Assessment and Plan - Assessment and Plan (Free Text) Assessment: Chaudhary's Palsy -Continue prednisone -Acyclovir started -Continue with artifical tears -F/U MRI brain. If negative patient can go home on prednisone, acyclovir, and artificial tears. <Emy Acosta - Last Filed: 06/08/18 13:44> Objective - Vital Signs/Intake and Output Vital Signs (last 24 hours): Temp Pulse Resp BP Pulse Ox 99.7 F H 118 H 20 113/71 97 06/06/18 17:20 06/06/18 17:20 06/06/18 17:20 06/06/18 17:20 06/06/18 17:20 - Labs Labs: 06/06/18 06:00 06/06/18 06:00 PT 12.1 SECONDS (9.4-12.5) 05/31/18 13:35 INR 1.06 05/31/18 13:35 APTT 27.9 Seconds (25.1-36.5) 05/31/18 13:35 Assessment and Plan - Assessment and Plan (Free Text) Assessment: I examined the patient independently and agree with the assessment and plan. Dr. acosta
[2018-06-04] MEDS: Aritificial Tears (15ml) OU PRN ×2 (13:15→20:08)
[2018-06-04] MEDS ORDERED: Morphine 2 mg/ml ISec IVP STA (14:29)
--- NOTE | 2018-06-04 15:23 | CP.PCM.PN ---
<Denisse Chapman - Last Filed: 06/04/18 15:10> Subjective - Date & Time of Evaluation Date of Evaluation: 06/04/18 Time of Evaluation: 09:56 - Subjective Subjective: Denisse Chapman PGY1 Hospital Progress Note Patient seen and examined at bedside. No acute events reported overnight. Offers no complaints today. Brain MRI pending for today. Objective - Vital Signs/Intake and Output Vital Signs (last 24 hours): Temp Pulse Resp BP Pulse Ox 97.4 F L 118 H 20 144/92 H 96 06/04/18 08:36 06/04/18 10:00 06/04/18 08:36 06/04/18 09:15 06/04/18 08:36 Intake and Output: 06/04/18 06/04/18 06:59 18:59 Intake Total 240 Balance 240 - Medications Medications: Current Medications Acetaminophen (Tylenol 325mg Tab) 650 mg PO Q6H PRN PRN Reason: Pain, moderate (4-7) Last Admin: 06/02/18 21:50 Dose: 650 mg Acyclovir (Zovirax) 800 mg PO TID [facility]; Protocol Amlodipine Besylate (Norvasc) 10 mg PO DAILY [facility] Last Admin: 06/04/18 10:00 Dose: Not Given Artificial Tears (Artificial Tears) 0 ml OU BID PRN PRN Reason: Dry eyes Last Admin: 06/04/18 13:15 Dose: 1 drop Aspirin (Ecotrin) 81 mg PO 0800 [facility] Last Admin: 06/04/18 09:15 Dose: 81 mg Atorvastatin Calcium (Lipitor) 20 mg PO DIN [facility] Last Admin: 06/03/18 17:14 Dose: 20 mg Clotrimazole (Lotrimin 1%) 0 gm TOP BID [facility] Last Admin: 06/04/18 10:00 Dose: 1 applic Hydralazine HCl (Apresoline) 10 mg IVP Q6H PRN PRN Reason: Systolic Blood Pressure Last Admin: 06/03/18 16:48 Dose: 10 mg Lidocaine (Lidoderm) 1 ea TD DAILY [facility] Last Admin: 06/04/18 10:00 Dose: 1 ea Lisinopril (Zestril) 30 mg PO DAILY [facility] Last Admin: 06/04/18 09:15 Dose: 30 mg Oxycodone/Acetaminophen (Percocet 5/325 Mg Tab) 1 tab PO Q6H PRN PRN Reason: Pain, severe (8-10) Stop: 06/06/18 10:00 Last Admin: 06/04/18 09:15 Dose: 1 tab Prednisone (Prednisone Tab) 60 mg PO DAILY [facility] Last Admin: 06/04/18 09:16 Dose: 60 mg - Labs Labs: 06/04/18 06:00 06/04/18 06:00 PT 12.1 SECONDS (9.4-12.5) 05/31/18 13:35 INR 1.06 05/31/18 13:35 APTT 27.9 Seconds (25.1-36.5) 05/31/18 13:35 - Additional Findings Additional findings: - Constitutional Appears: Non-toxic, No Acute Distress - Head Exam Head Exam: ATRAUMATIC, NORMAL INSPECTION, NORMOCEPHALIC - Eye Exam Additional comments: Left eye rotated mildly inward - ENT Exam ENT Exam: Mucous Membranes Moist - Respiratory Exam Respiratory Exam: Decreased Breath Sounds, NORMAL BREATHING PATTERN - Cardiovascular Exam Cardiovascular Exam: RRR, +S1, +S2 - GI/Abdominal Exam GI & Abdominal Exam: Soft, Normal Bowel Sounds. absent: Tenderness - Extremities Exam Extremities Exam: Normal Inspection. No motor or sensory deficits appreciated in B/L upper and lower extremities absent: Pedal Edema - Back Exam Back Exam: muscle spasm, paraspinal tenderness - Neurological Exam Neurological Exam: Alert, Awake, Oriented x3 - Psychiatric Exam Psychiatric exam: Normal Affect, Normal Mood - Skin Skin Exam: Dry, Intact, Warm Assessment and Plan - Assessment and Plan (Free Text) Assessment: 48 year old female with past medical history of HTN and obesity presenting with bilateral lower extremity pain and weakness, along with facial droop. MRI Brain pending final read today. Plan: B/l lower extremity weakness -likely 2/2 degenerative changes in the lumbar and sacral spine -05/[address] shows degenerative changes mid and lower lumbar spine/lumbosacral junction, most notable at L5-S1 including grade 1 r etrolisthesis. 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 Pollack <Karley Pollack - Last Filed: 06/06/18 18:22> Objective - Vital Signs/Intake and Output Vital Signs (last 24 hours): Temp Pulse Resp BP Pulse Ox 99.7 F H 118 H 20 113/71 97 06/06/18 17:20 06/06/18 17:20 06/06/18 17:20 06/06/18 17:20 06/06/18 17:20 Intake and Output: 06/06/18 06/06/18 06:59 18:59 Intake Total 180 Output Total 450 Balance -270 - Labs Labs: 06/06/18 06:00 06/06/18 06:00 PT 12.1 SECONDS (9.4-12.5) 05/31/18 13:35 INR 1.06 05/31/18 13:35 APTT 27.9 Seconds (25.1-36.5) 05/31/18 13:35 Attending/Attestation - Attestation I have personally seen and examined this patient.: Yes I have fully participated in the care of the patient.: Yes I have reviewed all pertinent clinical information, including history, physical exam and plan: Yes Notes (Text): 06/06/18 18:22 Medical record note made by the resident after discussion with my direction and input after the patient was personally seen and examined by me. I have reviewed the chart and agree that the record accurately reflects by personal performance of the history, physical exam, data review, and medical decision-making, in the course for the patient. I have also personally directed the plan of care.
--- NOTE | 2018-06-04 15:42 | MRI ---
Date of service: 06/04/2018 PROCEDURE: MRI BRAIN WITHOUT CONTRAST HISTORY: TIA vs stroke COMPARISON: None available. TECHNIQUE: Multiplanar, multisequence MR images of the brain were obtained without intravenous contrast enhancement. FINDINGS: HEMORRHAGE: None DWI: No evidence of an acute or early subacute infarction. BRAIN PARENCHYMA: No mass effect or edema. No atrophy or chronic microvascular ischemic changes. VENTRICLES: Unremarkable. No hydrocephalus. CRANIUM: Unremarkable. ORBITS: Grossly unremarkable. PARANASAL SINUSES/MASTOIDS: Clear VASCULAR SYSTEM: Skull base flow voids intact. OTHER FINDINGS: None. IMPRESSION: Unremarkable non contrast enhanced MRI of the brain.
[2018-06-04 18:12] LABS: LYME IGG NEGATIVE (NEGATIVE)
[2018-06-04 18:14] LABS: LYME IGM NEGATIVE (NEGATIVE)
[2018-06-05] MEDS: Oxycodone/Acetaminophen 5/325 mg Tab PO PRN ×4 (02:44→20:43)
[2018-06-05 06:25] LABS: BASO # 0.03 K/mm3 (0.0-2.0); BASO % 0.3 % (0.0-3.0); EOS # 0.1 (0.0-0.7); EOS % 0.6 % (1.5-5.0); GRAN # 7.14 (1.4-6.5); GRAN % 68.2 % (50.0-68.0); LYMPH # 2.6 (1.2-3.4); LYMPH % 24.7 % (22.0-35.0); MEAN CORPUSCULAR HEMOGLOBIN 26.5 pg (25.0-35.0); MEAN CORPUSCULAR HGB CONC 30.8 g/dl (31.0-37.0); MEAN PLATELET VOLUME 11.3 fl (7.0-11.0); MONO # 0.7 (0.1-0.6); MONO % 6.2 % (1.0-6.0); RBC 5.28 10^6/uL (3.5-6.1); RED CELL DISTRIBUTION WIDTH 15.3 % (11.5-14.5); WHITE BLOOD COUNT 10.5 10^3/uL (4.5-11.0)
[2018-06-05 06:50] LABS: ALB/GLOB RATIO 1.3 (1.1-1.8); ALT/SGPT 35 U/L (7-56); AST/SGOT 21 U/L (14-36); BLOOD UREA NITROGEN 23 mg/dL (7-21); CALCIUM 10.4 mg/dL (8.4-10.5); GFR NON-AFRICAN AMERICAN > 60
[2018-06-05] MEDS: Clotrimazole 1% Cream(30 gm) TOP SCH ×2 (10:01→17:39)
[2018-06-05] MEDS: Lidocaine 5% Patch TD SCH (10:01)
--- NOTE | 2018-06-05 10:37 | CP.PCM.PN ---
<Omari Figueroa - Last Filed: 06/06/18 07:02> Subjective - Date & Time of Evaluation Date of Evaluation: 06/05/18 Time of Evaluation: 07:30 - Subjective Subjective: Patient seen and examined at bedside stating she is feeling more better a time progresses. No acute events overnight. Patient states she is able to move her face more and vision is improving. Physical Exam - Head Exam Head Exam: ATRAUMATIC, NORMAL INSPECTION, NORMOCEPHALIC - Eye Exam Eye Exam: EOMI, slight improvement with upward brow movement - ENT Exam ENT Exam: Mucous Membranes Moist, still unable to fully smile however able to demonstrate more teeth with smile - Respiratory Exam Respiratory Exam: Clear to Auscultation Bilateral, NORMAL BREATHING PATTERN. absent: Rhonchi, Wheezes - Cardiovascular Exam Cardiovascular Exam: REGULAR RHYTHM, +S1, +S2 - GI/Abdominal Exam GI & Abdominal Exam: Normal Bowel Sounds, Soft - Expanded Lower Extremities Exam Left Lower Leg Exam: absent: dislocation, ecchymosis, erythema Neuro vacular tendon exam: absent: abnormal 2-point discrimination, motor deficit, sensory deficit Right Lower Leg Exam: absent: crepitus, deformity, dislocation, erythema Foot/Toe exam: absent: crepitus, deformity Neuro vacular tendon exam: absent: abnormal 2-point discrimination, decreased fine/light touch, motor deficit, sensory deficit - Neurological Exam Neurological exam: Alert, CN II-XII Intact, Oriented x3 - Psychiatric Exam Psychiatric exam: Normal Affect, Normal Mood - Skin Skin Exam: Normal Color, Warm Objective - Vital Signs/Intake and Output Vital Signs (last 24 hours): Temp Pulse Resp BP Pulse Ox 97.9 F 91 H 20 148/91 H 95 06/05/18 08:42 06/05/18 10:03 06/05/18 08:42 06/05/18 10:03 06/05/18 08:42 Intake and Output: 06/05/18 06/05/18 06:59 18:59 Intake Total 300 Balance 300 - Medications Medications: Current Medications Acetaminophen (Tylenol 325mg Tab) 650 mg PO Q6H PRN PRN Reason: Pain, moderate (4-7) Last Admin: 06/02/18 21:50 Dose: 650 mg Acyclovir (Zovirax) 800 mg PO TID [facility]; Protocol Last Admin: 06/05/18 10:02 Dose: 800 mg Amlodipine Besylate (Norvasc) 10 mg PO DAILY [facility] Last Admin: 06/05/18 10:02 Dose: 10 mg Artificial Tears (Artificial Tears) 0 ml OU BID PRN PRN Reason: Dry eyes Last Admin: 06/04/18 20:08 Dose: 1 drop Aspirin (Ecotrin) 81 mg PO 0800 [facility] Last Admin: 06/05/18 08:46 Dose: 81 mg Atorvastatin Calcium (Lipitor) 20 mg PO DIN [facility] Last Admin: 06/04/18 18:32 Dose: 20 mg Clotrimazole (Lotrimin 1%) 0 gm TOP BID [facility] Last Admin: 06/05/18 10:01 Dose: 1 applic Hydralazine HCl (Apresoline) 10 mg IVP Q6H PRN PRN Reason: Systolic Blood Pressure Last Admin: 06/03/18 16:48 Dose: 10 mg Lidocaine (Lidoderm) 1 ea TD DAILY [facility] Last Admin: 06/05/18 10:01 Dose: 1 ea Lisinopril (Zestril) 30 mg PO DAILY [facility] Last Admin: 06/05/18 10:03 Dose: 30 mg Oxycodone/Acetaminophen (Percocet 5/325 Mg Tab) 1 tab PO Q6H PRN PRN Reason: Pain, severe (8-10) Stop: 06/06/18 10:00 Last Admin: 06/05/18 08:45 Dose: 1 tab Prednisone (Prednisone Tab) 60 mg PO DAILY [facility] Last Admin: 06/05/18 10:02 Dose: 60 mg - Labs Labs: 06/05/18 06:00 06/05/18 06:00 PT 12.1 SECONDS (9.4-12.5) 05/31/18 13:35 INR 1.06 05/31/18 13:35 APTT 27.9 Seconds (25.1-36.5) 05/31/18 13:35 Assessment and Plan - Assessment and Plan (Free Text) Assessment: Chaudhary's Palsy -Continue prednisone -Continue acyclovir -Continue with artificial tears and eye patch -MRI brain reveals no acute abnormalities. If negative patient can go home on prednisone, acyclovir, and artificial tears. <Emy Acosta - Last Filed: 06/06/18 21:11> Objective - Vital Signs/Intake and Output Vital Signs (last 24 hours): Temp Pulse Resp BP Pulse Ox 99.7 F H 118 H 20 113/71 97 06/06/18 17:20 06/06/18 17:20 06/06/18 17:20 06/06/18 17:20 06/06/18 17:20 - Labs Labs: 06/06/18 06:00 06/06/18 06:00 PT 12.1 SECONDS (9.4-12.5) 05/31/18 13:35 INR 1.06 05/31/18 13:35 APTT 27.9 Seconds (25.1-36.5) 05/31/18 13:35 Assessment and Plan - Assessment and Plan (Free Text) Plan: I examined the patient independently and agree with the assessment and plan Dr. acosta
[2018-06-05] MEDS: Aritificial Tears (15ml) OU PRN ×2 (14:33→22:22)
[2018-06-06] MEDS: Oxycodone/Acetaminophen 5/325 mg Tab PO PRN ×2 (03:21→09:49)
[2018-06-06 06:41] LABS: BASO # 0.02 K/mm3 (0.0-2.0); BASO % 0.2 % (0.0-3.0); EOS # 0.1 (0.0-0.7); EOS % 0.6 % (1.5-5.0); GRAN # 6.81 (1.4-6.5); GRAN % 66.5 % (50.0-68.0); HEMOGLOBIN 13.9 g/dL (12.0-16.0); LYMPH # 2.7 (1.2-3.4); LYMPH % 26.6 % (22.0-35.0); MEAN CELL VOLUME 85.8 fl (80.0-105.0); MEAN CORPUSCULAR HEMOGLOBIN 26.7 pg (25.0-35.0); MEAN CORPUSCULAR HGB CONC 31.2 g/dl (31.0-37.0); MEAN PLATELET VOLUME 11.3 fl (7.0-11.0); MONO # 0.6 (0.1-0.6); MONO % 6.1 % (1.0-6.0); RBC 5.2 10^6/uL (3.5-6.1); RED CELL DISTRIBUTION WIDTH 15.1 % (11.5-14.5); WHITE BLOOD COUNT 10.3 10^3/uL (4.5-11.0)
[2018-06-06 07:01] VITALS: RESP 20
--- NOTE | 2018-06-06 07:13 | CP.PCM.PN ---
<BernalEvettemir L - Last Filed: 06/06/18 07:13> Subjective - Date & Time of Evaluation Date of Evaluation: 06/05/18 Time of Evaluation: 07:00 - Subjective Subjective: Resident Note for Hospitalist Service Patient examined at bedside. No acute events overnight. Patient reports improvement in facial droop, back pain and leg pain. Denies fevers, chills, chest pain, shortness of breath, abdominal pain, diarrhea, dysuria. Objective - Vital Signs/Intake and Output Vital Signs (last 24 hours): Temp Pulse Resp BP Pulse Ox 97.8 F 84 20 140/94 H 96 06/06/18 06:00 06/06/18 06:00 06/06/18 06:00 06/06/18 06:00 06/06/18 06:00 Intake and Output: 06/06/18 06/06/18 06:59 18:59 Intake Total 180 Output Total 450 Balance -270 - Medications Medications: Current Medications Acetaminophen (Tylenol 325mg Tab) 650 mg PO Q6H PRN PRN Reason: Pain, moderate (4-7) Last Admin: 06/02/18 21:50 Dose: 650 mg Acyclovir (Zovirax) 800 mg PO TID [facility]; Protocol Last Admin: 06/05/18 17:39 Dose: 800 mg Amlodipine Besylate (Norvasc) 10 mg PO DAILY [facility] Last Admin: 06/05/18 10:02 Dose: 10 mg Artificial Tears (Artificial Tears) 0 ml OU BID PRN PRN Reason: Dry eyes Last Admin: 06/05/18 22:22 Dose: 1 drop Aspirin (Ecotrin) 81 mg PO 0800 [facility] Last Admin: 06/05/18 08:46 Dose: 81 mg Atorvastatin Calcium (Lipitor) 20 mg PO DIN [facility] Last Admin: 06/05/18 17:39 Dose: 20 mg Clotrimazole (Lotrimin 1%) 0 gm TOP BID [facility] Last Admin: 06/05/18 17:39 Dose: 1 applic Hydralazine HCl (Apresoline) 10 mg IVP Q6H PRN PRN Reason: Systolic Blood Pressure Last Admin: 06/03/18 16:48 Dose: 10 mg Lidocaine (Lidoderm) 1 ea TD DAILY [facility] Last Admin: 06/05/18 10:01 Dose: 1 ea Lisinopril (Zestril) 30 mg PO DAILY [facility] Last Admin: 06/05/18 10:03 Dose: 30 mg Oxycodone/Acetaminophen (Percocet 5/325 Mg Tab) 1 tab PO Q6H PRN PRN Reason: Pain, severe (8-10) Stop: 06/06/18 10:00 Last Admin: 06/06/18 03:21 Dose: 1 tab Prednisone (Prednisone Tab) 60 mg PO DAILY [facility] Last Admin: 06/05/18 10:02 Dose: 60 mg - Labs Labs: 06/06/18 06:00 06/05/18 06:00 PT 12.1 SECONDS (9.4-12.5) 05/31/18 13:35 INR 1.06 05/31/18 13:35 APTT 27.9 Seconds (25.1-36.5) 05/31/18 13:35 - Additional Findings Additional findings: - Constitutional Appears: Non-toxic, No Acute Distress - Head Exam Head Exam: ATRAUMATIC, NORMAL INSPECTION, NORMOCEPHALIC - Eye Exam Additional comments: Left eye rotated mildly inward - ENT Exam ENT Exam: Mucous Membranes Moist - Respiratory Exam Respiratory Exam: Decreased Breath Sounds, NORMAL BREATHING PATTERN - Cardiovascular Exam Cardiovascular Exam: RRR, +S1, +S2 - GI/Abdominal Exam GI & Abdominal Exam: Soft, Normal Bowel Sounds. absent: Tenderness - Extremities Exam Extremities Exam: Normal Inspection. No motor or sensory deficits appreciated in B/L upper and lower extremities absent: Pedal Edema - Back Exam Back Exam: muscle spasm, paraspinal tenderness - Neurological Exam Neurological Exam: Alert, Awake, Oriented x3 - Psychiatric Exam Psychiatric exam: Normal Affect, Normal Mood - Skin Skin Exam: Dry, Intact, Warm Assessment and Plan - Assessment and Plan (Free Text) Assessment: 48 year old female with past medical history of HTN and obesity presenting with bilateral lower extremity pain and weakness, along with facial droop. Plan: B/l lower extremity weakness -likely 2/2 degenerative changes in the lumbar and sacral spine -Lumbar CT shows degenerative changes mid and lower lumbar spine/lumbosacral junction, most notable at L5-S1 including grade 1 retrolisthesis. 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 Ranjeet Bernal PGY-1 <Karley Pollack - Last Filed: 06/06/18 18:21> Objective - Vital Signs/Intake and Output Vital Signs (last 24 hours): Temp Pulse Resp BP Pulse Ox 99.7 F H 118 H 20 113/71 97 06/06/18 17:20 06/06/18 17:20 06/06/18 17:20 06/06/18 17:20 06/06/18 17:20 Intake and Output: 06/06/18 06/06/18 06:59 18:59 Intake Total 180 Output Total 450 Balance -270 - Labs Labs: 06/06/18 06:00 06/06/18 06:00 PT 12.1 SECONDS (9.4-12.5) 05/31/18 13:35 INR 1.06 05/31/18 13:35 APTT 27.9 Seconds (25.1-36.5) 05/31/18 13:35 Attending/Attestation - Attestation I have personally seen and examined this patient.: Yes I have fully participated in the care of the patient.: Yes I have reviewed all pertinent clinical information, including history, physical exam and plan: Yes Notes (Text): 06/06/18 18:15 Medical record note made by the resident after discussion with my direction and input after the patient was personally seen and examined by me. I have reviewed the chart and agree that the record accurately reflects by personal performance of the history, physical exam, data review, and medical decision-making, in the course for the patient. I have also personally directed the plan of care. 48 year old female with PMH of hypertension who presented with complaint of falls, back pain and leg pain/weakness for past few days. Also complained of facial droop x 2 days. ?Chaudhary's palsy . CT head was negative for acute findings. MRI brain is negative Chaudhary Palsy.Patient is on Prednisone and Acyclovir and is clinically improving.She will need total one week of Prednisone and acyclovir treatment. Bilateral Leg weakness, CT lumbar spine reviewed showed degenerative changes mid and lower lumbar spine / lumbosacral junction, most notable at L5-S1. MRI spine showed no acute fracture; multilevel degenerative spondylosis most significantly affecting L5-S1 level where this a large asymmetric disc ridge complex larger on the left side than right with moderate compressive effects on the left anterolateral border of the thecal sac and presumed posterior compression / displacement of the left sided descending S1 nerve root. Neurosurgery evaluation was appreciated , no plan for any intervention. Patient pain is better controlled . . Patient was evaluated by physical therapy and discharged to home with out patient physical therapy is recommended.Patient has walker at home.His significant half is going to help her at home.Patient also wants to go home.She is
--- NOTE | 2018-06-06 07:15 | CP.PCM.PN ---
Subjective - Date & Time of Evaluation Date of Evaluation: 06/06/18 Time of Evaluation: 07:13 - Subjective Subjective: Resident Progress Note for Hospitalist Service Objective - Vital Signs/Intake and Output Vital Signs (last 24 hours): Temp Pulse Resp BP Pulse Ox 97.8 F 84 20 140/94 H 96 06/06/18 06:00 06/06/18 06:00 06/06/18 06:00 06/06/18 06:00 06/06/18 06:00 Intake and Output: 06/06/18 06/06/18 06:59 18:59 Intake Total 180 Output Total 450 Balance -270 - Medications Medications: Current Medications Acetaminophen (Tylenol 325mg Tab) 650 mg PO Q6H PRN PRN Reason: Pain, moderate (4-7) Last Admin: 06/02/18 21:50 Dose: 650 mg Acyclovir (Zovirax) 800 mg PO TID [facility]; Protocol Last Admin: 06/05/18 17:39 Dose: 800 mg Amlodipine Besylate (Norvasc) 10 mg PO DAILY [facility] Last Admin: 06/05/18 10:02 Dose: 10 mg Artificial Tears (Artificial Tears) 0 ml OU BID PRN PRN Reason: Dry eyes Last Admin: 06/05/18 22:22 Dose: 1 drop Aspirin (Ecotrin) 81 mg PO 0800 [facility] Last Admin: 06/05/18 08:46 Dose: 81 mg Atorvastatin Calcium (Lipitor) 20 mg PO DIN [facility] Last Admin: 06/05/18 17:39 Dose: 20 mg Clotrimazole (Lotrimin 1%) 0 gm TOP BID [facility] Last Admin: 06/05/18 17:39 Dose: 1 applic Hydralazine HCl (Apresoline) 10 mg IVP Q6H PRN PRN Reason: Systolic Blood Pressure Last Admin: 06/03/18 16:48 Dose: 10 mg Lidocaine (Lidoderm) 1 ea TD DAILY [facility] Last Admin: 06/05/18 10:01 Dose: 1 ea Lisinopril (Zestril) 30 mg PO DAILY [facility] Last Admin: 06/05/18 10:03 Dose: 30 mg Oxycodone/Acetaminophen (Percocet 5/325 Mg Tab) 1 tab PO Q6H PRN PRN Reason: Pain, severe (8-10) Stop: 06/06/18 10:00 Last Admin: 06/06/18 03:21 Dose: 1 tab Prednisone (Prednisone Tab) 60 mg PO DAILY [facility] Last Admin: 06/05/18 10:02 Dose: 60 mg - Labs Labs: 06/06/18 06:00 06/05/18 06:00 PT 12.1 SECONDS (9.4-12.5) 05/31/18 13:35 INR 1.06 05/31/18 13:35 APTT 27.9 Seconds (25.1-36.5) 05/31/18 13:35 Assessment and Plan - Assessment and Plan (Free Text) Assessment: 48 year old female with past medical history of HTN and obesity presenting with bilateral lower extremity pain and weakness, along with facial droop. Plan: B/l lower extremity weakness -likely 2/2 degenerative changes in the lumbar and sacral spine -Lumbar CT shows degenerative changes mid and lower lumbar spine/lumbosacral junction, most notable at L5-S1 including grade 1 retrolisthesis. Proliferative degenerative changes extend into exiting neural foramen on the left -Lumbar spine MRI shows no acute fractures, multilevel degenerative spondylosis most affecting L5-S1, moderate compressive effects of left anterolateral border of thecal sac, presumed posterior compression/displacement of S1 nerve root -per neurosurgery conservative medical therapy with NSAIDs and physical therapy at this time -Lyme titers negative, herpes pending -continue PT Chaudhary's Palsy -Brain MRI today unremarkable -05/[address] negative -Prednisone 60 mg daily Abdominal rash -Clotrimazole cream -acyclovir Hx of HTN -Lisinopril 30 mg daily -Amlodipine 10 mg PO daily -Hydralazine 10 mg Q6H PRN PPX -SCDs
[2018-06-06 07:53] LABS: ALB/GLOB RATIO 1.3 (1.1-1.8); ALBUMIN 3.9 g/dL (3.0-4.8); ALT/SGPT 18 U/L (7-56); AST/SGOT 22 U/L (14-36); BLOOD UREA NITROGEN 24 mg/dL (7-21); CALCIUM 9.5 mg/dL (8.4-10.5); GFR NON-AFRICAN AMERICAN > 60
[2018-06-06] MEDS: Aritificial Tears (15ml) OU PRN (09:53)
[2018-06-06] MEDS: Lidocaine 5% Patch TD SCH (09:54)
--- NOTE | 2018-06-06 09:54 | CP.PCM.PN ---
<Omari Figueroa - Last Filed: 06/06/18 15:40> Subjective - Date & Time of Evaluation Date of Evaluation: 06/06/18 Time of Evaluation: 09:53 - Subjective Subjective: Patient seen and examined at bedside. States she is feeling better, was able to walk around with physical therapy. Requests more session with speech pathologist as she felt this helped her. Patient denies any complaints aside from her lower back pain. States she notices improvements in her facial symptoms from onset of patients. Physical Exam - Head Exam Head Exam: ATRAUMATIC, NORMAL INSPECTION, NORMOCEPHALIC - Eye Exam Eye Exam: EOMI, slight improvement with upward brow movement. Patient able to close her eyes more today. - ENT Exam ENT Exam: Mucous Membranes Moist, still unable to fully smile however able to demonstrate more teeth with smile. Able to move mouth from left to right which patient was able to before. Tried eliciting smile by tickling patient however still unable to smile fully. - Respiratory Exam Respiratory Exam: Clear to Auscultation Bilateral, NORMAL BREATHING PATTERN. absent: Rhonchi, Wheezes - Cardiovascular Exam Cardiovascular Exam: REGULAR RHYTHM, +S1, +S2 - GI/Abdominal Exam GI & Abdominal Exam: Normal Bowel Sounds, Soft - Expanded Lower Extremities Exam Left Lower Leg Exam: absent: dislocation, ecchymosis, erythema Neuro vacular tendon exam: absent: abnormal 2-point discrimination, motor deficit, sensory deficit Right Lower Leg Exam: absent: crepitus, deformity, dislocation, erythema Foot/Toe exam: absent: crepitus, deformity Neuro vacular tendon exam: absent: abnormal 2-point discrimination, decreased fine/light touch, motor deficit, sensory deficit - Neurological Exam Neurological exam: Alert, CN II-XII Intact, Oriented x3 - Psychiatric Exam Psychiatric exam: Normal Affect, Normal Mood - Skin Skin Exam: Normal Color, Warm Objective - Vital Signs/Intake and Output Vital Signs (last 24 hours): Temp Pulse Resp BP Pulse Ox 97.8 F 84 20 140/94 H 96 06/06/18 06:00 06/06/18 09:47 06/06/18 06:00 06/06/18 09:51 06/06/18 06:00 Intake and Output: 06/06/18 06/06/18 06:59 18:59 Intake Total 180 Output Total 450 Balance -270 - Medications Medications: Current Medications Acetaminophen (Tylenol 325mg Tab) 650 mg PO Q6H PRN PRN Reason: Pain, moderate (4-7) Last Admin: 06/02/18 21:50 Dose: 650 mg Acyclovir (Zovirax) 800 mg PO TID [facility]; Protocol Last Admin: 06/06/18 09:46 Dose: 800 mg Amlodipine Besylate (Norvasc) 10 mg PO DAILY [facility] Last Admin: 06/06/18 09:51 Dose: 10 mg Artificial Tears (Artificial Tears) 0 ml OU BID PRN PRN Reason: Dry eyes Last Admin: 06/05/18 22:22 Dose: 1 drop Aspirin (Ecotrin) 81 mg PO 0800 [facility] Last Admin: 06/06/18 08:36 Dose: 81 mg Atorvastatin Calcium (Lipitor) 20 mg PO DIN [facility] Last Admin: 06/05/18 17:39 Dose: 20 mg Clotrimazole (Lotrimin 1%) 0 gm TOP BID [facility] Last Admin: 06/05/18 17:39 Dose: 1 applic Hydralazine HCl (Apresoline) 10 mg IVP Q6H PRN PRN Reason: Systolic Blood Pressure Last Admin: 06/03/18 16:48 Dose: 10 mg Lidocaine (Lidoderm) 1 ea TD DAILY [facility] Last Admin: 06/05/18 10:01 Dose: 1 ea Lisinopril (Zestril) 30 mg PO DAILY [facility] Last Admin: 06/06/18 09:47 Dose: 30 mg Oxycodone/Acetaminophen (Percocet 5/325 Mg Tab) 1 tab PO Q6H PRN PRN Reason: Pain, severe (8-10) Stop: 06/06/18 10:00 Last Admin: 06/06/18 09:49 Dose: 1 tab Prednisone (Prednisone Tab) 60 mg PO DAILY [facility] Last Admin: 06/06/18 09:47 Dose: 60 mg - Labs Labs: 06/06/18 06:00 06/06/18 06:00 PT 12.1 SECONDS (9.4-12.5) 05/31/18 13:35 INR 1.06 05/31/18 13:35 APTT 27.9 Seconds (25.1-36.5) 05/31/18 13:35 Assessment and Plan - Assessment and Plan (Free Text) Assessment: Chaudhary's Palsy -Continue prednisone -Continue acyclovir -Continue with artificial tears and eye patch -MRI brain reveals no acute abnormalities. Patient to go home on prednisone, acyclovir, and artificial tears. <Emy Duggan - Last Filed: 06/06/18 20:34> Objective - Vital Signs/Intake and Output Vital Signs (last 24 hours): Temp Pulse Resp BP Pulse Ox 99.7 F H 118 H 20 113/71 97 06/06/18 17:20 06/06/18 17:20 06/06/18 17:20 06/06/18 17:20 06/06/18 17:20 - Labs Labs: 06/06/18 06:00 06/06/18 06:00 PT 12.1 SECONDS (9.4-12.5) 05/31/18 13:35 INR 1.06 05/31/18 13:35 APTT 27.9 Seconds (25.1-36.5) 05/31/18 13:35 Assessment and Plan - Assessment and Plan (Free Text) Assessment: I examined the patient independently and agree with the assessment and plan. Dr. Duggan Neurology
--- NOTE | 2018-06-06 15:11 | CP.PCM.DIS ---
Provider - Provider Date of Admission: 05/31/18 18:21 Attending physician: Karley Pollack MD Consults: 05/31/18 15:50 Neurology Consult Routine Comment: lt. sided facial deficits, bells palsy, back pain Consulting Provider: Earl Garcia Consulting Physician: Earl Garcia Reason for Consult: lt. sided facial deficits, bells palsy, back pain 05/31/18 23:16 Case Management Referral Routine Comment: NEEDS ASSISTANCE AT HOME Physician Instructions: Reason For Exam: EVALUATION Reason for Referral: Family Helper Eval Nursing Referral for Wound Care Routine Comment: IASD AND MASD UNDER THE STOMACH SKIN FOLD Physician Instructions: Reason For Exam: EVALUATION 05/31/18 23:21 Nursing Referral for Palliative Care Routine Comment: Physician Instructions: Reason For Exam: EVALUATION 05/31/18 23:26 Nursing Referral for Wound Care Routine Comment: MASD,IASD Physician Instructions: Reason For Exam: EVALUATION 06/02/18 18:09 Physician Consult Routine Comment: Consulting Provider: Minor Turner Consulting Physician: Minor Turner Reason for Consult: multilevel spondylosis with compression of S1 06/02/18 23:54 Nursing Referral for Wound Care Routine Comment: Physician Instructions: Reason For Exam: excoriations on abdomen 06/03/18 10:57 Nursing Referral for Wound Care Routine Comment: Physician Instructions: Reason For Exam: excoriation to abdomen 06/04/18 14:26 Case Management Referral Routine Comment: Physician Instructions: Reason For Exam: Subacute rehab Reason for Referral: Discharge Planning Time Spent in preparation of Discharge (in minutes): 35 Diagnosis - Discharge Diagnosis (1) Back pain Status: Acute Hospital Course - Lab Results Lab Results: Most Recent Lab Values WBC 10.3 10^3/uL (4.5-11.0) 06/06/18 06:00 RBC 5.20 10^6/uL (3.5-6.1) 06/06/18 06:00 Hgb 13.9 g/dL (12.0-16.0) 06/06/18 06:00 Hct 44.6 % (36.0-48.0) 06/06/18 06:00 MCV 85.8 fl (80.0-105.0) 06/06/18 06:00 MCH 26.7 pg (25.0-35.0) 06/06/18 06:00 MCHC 31.2 g/dl (31.0-37.0) 06/06/18 06:00 RDW 15.1 % (11.5-14.5) H 06/06/18 06:00 Plt Count 343 10^3/uL (120.0-450.0) 06/06/18 06:00 MPV 11.3 fl (7.0-11.0) H 06/06/18 06:00 Gran % 66.5 % (50.0-68.0) 06/06/18 06:00 Lymph % (Auto) 26.6 % (22.0-35.0) 06/06/18 06:00 [place] % (Auto) 6.1 % (1.0-6.0) H 06/06/18 06:00 Eos % (Auto) 0.6 % (1.5-5.0) L 06/06/18 06:00 Baso % (Auto) 0.2 % (0.0-3.0) 06/06/18 06:00 Gran # 6.81 (1.4-6.5) H 06/06/18 06:00 Lymph # (Auto) 2.7 (1.2-3.4) 06/06/18 06:00 [place] # (Auto) 0.6 (0.1-0.6) 06/06/18 06:00 Eos # (Auto) 0.1 (0.0-0.7) 06/06/18 06:00 Baso # (Auto) 0.02 K/mm3 (0.0-2.0) 06/06/18 06:00 ESR 23 mm/hr (0.0-20.0) H 05/31/18 13:35 PT 12.1 SECONDS (9.4-12.5) 05/31/18 13:35 INR 1.06 05/31/18 13:35 APTT 27.9 Seconds (25.1-36.5) 05/31/18 13:35 Sodium 139 mmol/L (132-148) 06/06/18 06:00 Potassium 4.3 mmol/L (3.6-5.0) 06/06/18 06:00 Chloride 101 mmol/L (98-107) 06/06/18 06:00 Carbon Dioxide 29 mmol/L (21-33) 06/06/18 06:00 Anion Gap 13 (10-20) 06/06/18 06:00 BUN 24 mg/dL (7-21) H 06/06/18 06:00 Creatinine 0.7 mg/dl (0.7-1.2) 06/06/18 06:00 Est GFR ( Amer) > 60 06/06/18 06:00 Est GFR (Non-Af Amer) > 60 06/06/18 06:00 Random Glucose 105 mg/dL (70-110) 06/06/18 06:00 Calcium 9.5 mg/dL (8.4-10.5) 06/06/18 06:00 Phosphorus 5.1 mg/dL (2.5-4.5) H 06/06/18 06:00 Magnesium 2.3 mg/dL (1.7-2.2) H 06/06/18 06:00 Total Bilirubin 0.5 mg/dL (0.2-1.3) 06/06/18 06:00 AST 22 U/L (14-36) 06/06/18 06:00 ALT 18 U/L (7-56) 06/06/18 06:00 Alkaline Phosphatase 51 U/L (38-126) 06/06/18 06:00 Total Creatine Kinase 167 U/L (35-230) 05/31/18 13:35 C-Reactive Protein 8.90 mg/L (0.0-9.9) 05/31/18 13:35 Total Protein 7.1 g/dL (5.8-8.3) 06/06/18 06:00 Albumin 3.9 g/dL (3.0-4.8) 06/06/18 06:00 Globulin 3.1 gm/dL 06/06/18 06:00 Albumin/Globulin Ratio 1.3 (1.1-1.8) 06/06/18 06:00 Triglycerides 338 mg/dL (35-160) H 06/01/18 06:30 Cholesterol 212 mg/dL (130-200) H 06/01/18 06:30 LDL Cholesterol Direct 129 mg/dL (0-129) 06/01/18 06:30 HDL Cholesterol 30 mg/dL (29-60) 06/01/18 06:30 Lipase 119 U/L (23-300) 05/31/18 13:35 Beta HCG, Quant < 2.39 mIU/mL (0-6.15) 05/31/18 13:35 Lyme Disease IgG Ab (IFA) Negative (NEGATIVE) 05/31/18 13:35 Lyme Disease IgM Ab Negative (NEGATIVE) 05/31/18 13:35 - Hospital Course Hospital Course: On admission: Patient is a 48 year old female with past medical history of HTN and obesity presenting with chief complaint of increasing weakness which began about one week prior. She states she has been experiencing bilateral thigh pain and back pain, for which she took naproxen prescribed from an urgent care with no relief. The thigh pain is localized and unrelated to her back pain. Pain is intermittent, sharp in nature, and worsened by lying supine. She presented to [facility] ED three days ago with the same symptoms. At that time lower extremity dopplers were done along with left femur x-ray which were unremarkable. Ye sterday she began to notice left sided facial droop, slurred speech, and tingling in her upper and lower extremities bilaterally. She states that prior to the onset of symptoms she was able to carry out activities of daily living independently. Her weakness has worsened to the severity that she has to use a walker. She denies any recent illnesses, trauma, recent travel including camping, tick bites, and sick contacts. She also denies seizures, loss of consciousness, fevers, chills, chest pain, shortness of breath, abdominal pain, diarrhea, dysuria, bowel or bladder incontinence. During hospital stay: Patient had lumbar CT done which showed degenerative changes mid and lower lumbar spine/lumbosacral junction, most notable at L5-S1 including grade 1 retrolisthesis. Proliferative degenerative changes extend into exiting neural foramen on the left. MRI showed no acute fractures, multilevel degenerative spondylosis most affecting L5-S1, moderate compressive effects of left anterolateral border of thecal sac, presumed posterior compression/displacement of S1 nerve root. No surgical intervention indicated per neurosurgery. Lyme titers were negative. Patient was treated with physical therapy. Patient also had brain MRI which was unremarkable. Head CT was negative for stroke or any other acute intracranial abnormality. Patient was given steroids and acyclovir. Recommendation was made for home with services. Patient also had high phosphorus levels on labwork. Patient was advised to hold off on taking home multivitamin and repeat labwork to followup phosphorus levels. Due to patient's lack of insurance, home services could not be obtained prior to discharge. Patient's high risk for fall was discussed with patient and her significant other. Patient's significant other stated that he will be able to provide assistance as needed until patient can be re-enrolled in insurance and home services could be covered. Patient stated she has a walker at home that she could use. Patient was medically optimized for discharge and provided prescription for physical therapy. Please see EMR for full summary. - Date & Time of H&P Date of H&P: 05/31/18 Time of H&P: 18:27 Discharge Exam - Additional Findings Additional findings: - Constitutional Appears: Non-toxic, No Acute Distress - Head Exam Head Exam: ATRAUMATIC, NORMAL INSPECTION, NORMOCEPHALIC - Eye Exam Eye Exam: EOMI - ENT Exam ENT Exam: Mucous Membranes Moist - Respiratory Exam Respiratory Exam: Clear to Auscultation Bilaterally, NORMAL BREATHING PATTERN - Cardiovascular Exam Cardiovascular Exam: RRR, +S1, +S2 - GI/Abdominal Exam GI & Abdominal Exam: Soft, Normal Bowel Sounds. absent: Tenderness - Extremities Exam Extremities Exam: Normal Inspection. No motor or sensory deficits appreciated in B/L upper and lower extremities absent: Pedal Edema - Back Exam Back Exam: muscle spasm, paraspinal tenderness - Neurological Exam Neurological Exam: Alert, Awake, Oriented x3 - Psychiatric Exam Psychiatric exam: Normal Affect, Normal Mood - Skin Skin Exam: Dry, Intact, Warm Discharge Plan - Discharge Medications Prescriptions: Acyclovir [Zovirax] 400 mg PO 5XD 8 Days tab amLODIPine [Norvasc] 10 mg PO DAILY 30 Days tab Aspirin [Ecotrin] 81 mg PO 0800 30 Days tabec Atorvastatin [Lipitor] 20 mg PO DIN 30 Days tab Clotrimazole 1% Cream [Lotrimin 1%] 1 unit TOP BID PRN 30 Days tube PRN Reason: Rash Lisinopril [Zestril] 30 mg PO DAILY 30 Days tab Polyethylene Glycol/Polyvinyl [Artificial Tears] 1 unit OU BID PRN 30 Days bottle PRN Reason: Dry Eyes predniSONE [predniSONE Tab] 60 mg PO DAILY 8 Days tab - Follow Up Plan Condition: STABLE Disposition: HOME/ ROUTINE Patient education suggested?: Yes Instructions: Hypokalemia (DC), Low Back Pain (DC), Preventing Falls Additional Instructions: Please follow up with your primary medical doctor within one week. Please hold off on taking your multivitamins and follow up on your phosphorus levels with your primary medical doctor. Also resume your home medications as prescribed. Return to ED if symptoms return or worsen. Follow up with Physical therapy prescription given
[2018-06-06 17:20] VITALS: BP 113/71; PULSE 118; TEMP 99.7; O2SAT 97
== END 2018-06-06 17:54 | disposition home or self-care (01) | DRG 347 ==
LOC: ED 12:46 → ERH 17:10 → OBSVTOIN 18:21 → 3RSO 21:13 → 3RNO 06-06 12:05
PROVIDERS: ADMIT Internal Medicine; ATTEND Internal Medicine
DX: M51.37 Other intervertebral disc degeneration, lumbosacral region (principal); I10 Essential (primary) hypertension; G51.0 Bell's palsy; E87.6 Hypokalemia; B35.4 Tinea corporis; G89.29 Other chronic pain; R29.6 Repeated falls; E66.9 Obesity, unspecified; Z68.34 Body mass index [BMI] 34.0-34.9, adult; Z79.82 Long term (current) use of aspirin